=== PATIENT | female | born 1955 | race Caucasian/White ===

== ENCOUNTER → 2016-09-30 | Outpatient (CLI) | payer OTHER | END | disposition home or self-care (01) | LOC: YCFC.O 16:51 | PROVIDERS: ATTEND Nurse Practitioner Family | DX: E11.21 Type 2 diabetes mellitus with diabetic nephropathy (principal); I10 Essential (primary) hypertension; G40.909 Epilepsy, unspecified, not intractable, without status epilepticus; M54.17 Radiculopathy, lumbosacral region; Z13.220 Encounter for screening for lipoid disorders ==

== ENCOUNTER 2016-11-16 07:18 | Emergency (ER) | payer OTHER ==
[2016-11-16 07:39] VITALS: TEMP 98
[2016-11-16] MEDS ORDERED: HYDROmorphone HCL INJ 2 MG/ML VIAL IV ONE ×2 (07:42→08:49)
[2016-11-16] MEDS ORDERED: SODIUM CHLORIDE 0.9% 1000ML 1,000 ML IVS ONE (07:43)
[2016-11-16] MEDS ORDERED: ONDANSETRON ODT 8 MG TAB SL ONE (07:44)
--- NOTE | 2016-11-16 08:32 | RAD ---
EXAM DESCRIPTION: Obstructive series, 3 radiographs CLINICAL HISTORY: Right-sided abdomen and back pain FINDINGS/ IMPRESSION: Comparison 02/29/2016 Normal heart size. Tortuous atherosclerotic aorta with ectasia. Similar appearance on previous study. 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 This is seen on upper images of CT abdomen from 12/07/2015. There is also evidence of abdominal aortic aneurysm with faint vascular calcification on the plain radiograph. Previous CT shows aneurysmal dilation up to 4.4 cm. Imaging follow-up should be performed every 12 months at this size. Recommend vascular consultation No pulmonary edema, infiltrates or effusions Scattered large and small intestinal bowel gas. No evidence of pneumatosis or free intraperitoneal air. No mechanical bowel obstruction No organomegaly or obvious abdominal mass lesion. Atherosclerotic vascular calcifications and a common iliac vascular stent. Numerous phleboliths. Electronically signed by: Richard James MD 11/16/2016 8:31 AM CDT
[2016-11-16] MEDS ORDERED: PROMETHAZINE HCL INJ 25 MG/ML VIAL IM ONE (08:45)
[2016-11-16] MEDS ORDERED: METOPROLOL TARTRATE INJ 5 MG/5 ML VIAL IV ONE (08:48)
--- NOTE | 2016-11-16 09:10 | CT ---
EXAM DESCRIPTION: Abdoment/Pelvis w/o Contrast CLINICAL HISTORY: 61 years Female, right flank and abd pain, 18 hours, hx aneurysm COMPARISON: 07 December 2015 TECHNIQUE: Transaxial images were obtained without intravenous or oral contrast media. Sagittal and coronal reconstruction was performed.This exam was performed according to our departmental dose-optimization program, which includes automated exposure control, adjustment of the mA and/or kV according to patient size and/or use of iterative reconstruction technique. FINDINGS: The lung bases are clear. The liver and spleen are normal in appearance. No biliary ductal dilatation is observed. The gallbladder is normal in appearance. Diffuse aneurysmal dilatation of the abdominal aorta is observed. It measures 5.14cm in greatest diameter. Its not significantly changed in comparison is made to the previous exam. A right iliac artery stent is observed in place. Imaging of the kidneys reveals no evidence of hydronephrosis or mass. A mid pole 6.4 mm diameter left renal calculus is observed. A small simple cyst is observed in the lower pole the right kidney. Diverticulosis of the sigmoid colon is observed without evidence of diverticulitis. The patient is post hysterectomy. No inguinal region abnormality is seen. IMPRESSION: 1. Aneurysmal dilatation of the abdominal aorta is observed diffusely. It measures 5.14cm in diameter. Surgical consultation is recommended. 2. A midpole nonobstructing left renal calculus is observed. 3. Uncomplicated diverticulosis of the colon. 4. Hysterectomy Electronically signed by: David Burgos MD 11/16/2016 9:09 AM CDT
[2016-11-16] MEDS ORDERED: HYDROcodone 10MG/APAP 325MG 1 EA TAB PO ONE (10:37)
[2016-11-16] MEDS: cloNIDine HCL 0.1 MG TAB PO ONE ×2 (10:45→10:57)
--- NOTE | 2016-11-16 10:51 | ED.PDOC ---
History of Present Illness - General Chief Complaint: Back Pain or Injury Stated Complaint: back pain Time Seen by Provider: 11/16/16 07:20 Source: patient Exam Limitations: no limitations - History of Present Illness Initial Comments: the patient is a 61-year-old female presenting to the emergency room secondary to low back pain with some radiation around to her abdomen starting last night. The patient was out at the [place] watching a firework show. The patient is usually not very active but was out the better part of the day. She started having some spasm of her low back has progressively gotten worse over the night into this morning. Additionally the patient did forget to take her blood pressure medications this morning. The patient does have a known aortic aneurysm of the abdomen that is approximately 5 cm prior. No new neurological changes otherwise. No definite rebound or peritoneal signs. The patient has significant discomfort palpation to the paraspinal muscles adjacent to L3-L5. No visual changes on inspection of the back. No rash. Timing/Duration: 24 hours Severity: severe Improving Factors: nothing Worsening Factors: movement Associated Symptoms: denies symptoms Allergies/Adverse Reactions: Allergies Latex Allergy (Verified 11/16/16 07:38) OBTAINED FROM [facility] Penicillins Allergy (Verified 11/16/16 07:38) OBTAINED FROM [facility] Pregabalin [From Lyrica] Allergy (Verified 11/16/16 07:38) OBTAINED FROM [facility] CHART Home Medications: Ambulatory Orders Gabapentin [Neurontin] 1,200 mg PO TID 04/14/12 Isosorbide Mononitrate [Imdur] 60 mg PO DAILY 04/14/12 Nitroglycerin 0.4 mg Tab [Nitrostat] 0.4 mg SL PRN PRN 04/14/12 Phenytoin Sodium Cap (ER Disp) [Dilantin Cap (ER Disp)] 200 mg PO 1230 04/14/12 Phenytoin Sodium Cap (ER Disp) [Dilantin Cap (ER Disp)] 300 mg PO 0030 04/14/12 Promethazine Tab (ER Disp) [Phenergan Tab (ER Dispense)] 1 tab PO PRN PRN Amlodipine Besylate [Norvasc] 10 mg PO DAILY #0 tab 04/26/12 Aspirin 325 mg PO DAILY #0 tab 04/26/12 Atenolol 50 mg PO BID #0 tab 04/26/12 Lisinopril [Prinivil] 10 mg PO DAILY #0 tab 04/26/12 Clonidine HCl 0.4 mg PO TID 11/05/13 cloNAZepam [Klonopin] 1 mg PO TID PRN 11/06/13 Clopidogrel Bisulfate [Plavix] 75 mg PO QD 12/07/15 Metformin HCl 500 mg PO DAILY 12/07/15 Rosuvastatin Calcium [Crestor] 20 mg PO DAILY 12/07/15 Cetirizine HCl [ZyrTEC] 10 mg PO DAILY 01/05/16 Montelukast [Singulair] 10 mg PO DAILY 01/05/16 Lpkxhvmpqtnjy-Rcsq-Kcjqoaappb [Fioricet] 1 ea PO Q8H PRN #21 tab 11/16/16 Cyclobenzaprine HCl [Flexeril] 5 mg PO TID PRN #30 tab 11/16/16 Review of Systems - Review of Systems Review of Systems: 11/16/16 10:50 for new symptoms only Constitutional: States: no symptoms reported EENTM: States: no symptoms reported Respiratory: States: no symptoms reported Cardiology: States: no symptoms reported Gastrointestinal/Abdominal: States: abdominal pain Genitourinary: States: no symptoms reported Musculoskeletal: States: back pain Skin: States: no symptoms reported Neurological: States: see HPI Endocrine: States: no symptoms reported All other Systems: No Change from Baseline Past Medical History (General) - Patient Medical History Hx Seizures: Yes Hx Stroke: Yes - TIAs Hx Dementia: No Hx Asthma: Yes Hx of COPD: Yes Hx Cardiac Disorders: Yes Hx Congestive Heart Failure: No Hx Pacemaker: No Hx Hypertension: Yes Hx Thyroid Disease: No Hx Diabetes: Yes Hx Gastroesophageal Reflux: No Hx Renal Disease: Yes Hx Cancer: No Hx of HIV: No Hx Hepatitis C: Yes Hx MRSA: No Surgical History: Hysterectomy - Vaccination History Hx Tetanus, Diphtheria Vaccination: No Hx Influenza Vaccination: No Hx Pneumococcal Vaccination: Yes - Social History Hx Tobacco Use: Yes Hx Chewing Tobacco Use: No Hx Alcohol Use: No Hx Substance Use: No Hx Substance Use Treatment: No Hx Depression: Yes Hx Physical Abuse: No Hx Emotional Abuse: No Hx Suspected Abuse: No - Activities of Daily Living Hospice Agency (if applicable):: None - Female History Patient is a Female of Child Bearing Age (10 -59 yrs old): No Patient : No Family Medical History - Family History Mother Living Status: Still Living Hx Family Asthma: Yes Hx Family Congestive Heart Failure: No Hx Family Hypertension: Yes Hx Family Stroke: No Hx Family Diabetes: No Hx Family Cancer: No Physical Exam - Physical Exam General Appearance: Alert, No apparent distress, Obvious distress Eye Exam: bilateral normal Ears, Nose, Throat: hearing grossly normal, normal ENT inspection, normal pharynx Neck: non-tender, full range of motion, supple Respiratory: chest non-tender, lungs clear, normal breath sounds, no respiratory distress, no accessory muscle use Cardiovascular/Chest: normal peripheral pulses, no edema Peripheral Pulses: radial,right: 2+, radial,left: 2+, dorsalis pedis,right: 1+, dorsalis pedis,left: 1+, posterior tibialis,right: 1+, posterior tibialis,left: 1+ Gastrointestinal/Abdominal: non tender, soft Rectal Exam: deferred Back Exam: no vertebral tenderness, CVA tenderness (R) Extremity: normal range of motion, non-tender, no pedal edema, no calf tenderness, normal capillary refill, other - he patient does have some mild acral cyanosis which is long-standing 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, alert, normal mood/affect, oriented x 3 Skin Exam: normal color - except as above Comments: Vital Signs - 8 hr 11/16/16 11/16/16 11/16/16 07:25 09:03 09:20 Temperature 98.0 F Pulse Rate [ 75 74 pulse ox] Respiratory 20 20 Rate Blood Pressure 209/148 211/142 229/132 [Left Arm] O2 Sat by Pulse 99 96 Oximetry 11/16/16 09:50 Temperature Pulse Rate [ 73 pulse ox] Respiratory 20 Rate Blood Pressure 195/125 [Left Arm] O2 Sat by Pulse 97 Oximetry last manual blood pressure checked by me was 175/98 Progress - Progress Progress: 11/16/16 10:53 the patient is a 61-year-old female presenting to the emergency room secondary to right-sided low back pain starting last night. The patient is mildly dehydrated and did receive a liter of IV fluids. Additionally her blood pressures were uncontrolled this morning due to not having had her morning blood pressure medications as well as due to pain. The patient has received her morning blood pressure medications and some pain medications. Blood pressures have improved but are still significantly elevated. She does need follow her blood pressures twice daily while relaxed and record these for a follow-up appointment with her primary care doctor. The patient will be written for Fioricet and Flexeril for as needed use for the low back pain. Steroids are being avoided secondary to her diabetes. A heat pad and topical icy hot or Biofreeze may prove beneficial. Stretching may also prove beneficial. ER warnings are given for significant worsening. CT scan of the abdomen and pelvis showed no significant change of the abdominal aortic aneurysm. She does need to be set up with vascular surgery to follow along with this given its size. Additionally a vascular ultrasound may provide additional information on the aneurysm itself. - Results/Orders Results/Orders: 11/16/16 08:45 BLOOD CULTURE Stat Laboratory Results - last 24 hr 11/16/16 11/16/16 11/16/16 08:00 08:00 08:00 WBC 10.8 RBC 6.11 H Hgb 16.3 H Hct 49.0 H MCV 80.3 L MCH 26.6 L MCHC 33.2 RDW 15.3 H Plt Count 457 H MPV 8.0 Absolute Neuts (auto) 8.40 H Absolute Lymphs (auto) 1.60 Absolute Monos (auto) 0.60 Absolute Eos (auto) 0.10 Absolute Basos (auto) 0.20 H Neutrophils % 78.2 H Lymphocytes % 14.4 L Monocytes % 5.3 Eosinophils % 0.7 L Basophils % 1.4 PT 10.2 INR 0.900 PTT (SP) 35.3 D-Dimer, Quantitative 567 H* Sodium 130 L Potassium 4.5 Chloride 95 L Carbon Dioxide 23 Anion Gap 16.5 BUN 20 H Creatinine 1.27 BUN/Creatinine Ratio 15.7 Random Glucose 155 H Serum Osmolality 266.6 L Lactic Acid Calcium 10.0 Magnesium 2.2 Total Bilirubin 0.6 AST 14 ALT 11 Alkaline Phosphatase 190 H Creatine Kinase 45 CK-MB (CK-2) 1.4 CK-MB (CK-2) % Not Reportable Troponin I 0.03 B-Natriuretic Peptide 503.0 H* Serum Total Protein 9.0 H Albumin 4.5 Globulin 4.5 H Albumin/Globulin Ratio 1.0 L Amylase 84 Lipase 36 Urine Color Urine Appearance Urine pH Ur Specific [place] Urine Protein Urine Glucose (UA) Urine Ketones Urine Blood Urine Nitrite Urine Bilirubin Urine Urobilinogen Ur Leukocyte Esterase Urine RBC Urine WBC Ur Epithelial Cells Urine Bacteria 11/16/16 11/16/16 08:15 08:45 WBC RBC Hgb Hct MCV MCH MCHC RDW Plt Count MPV Absolute Neuts (auto) Absolute Lymphs (auto) Absolute Monos (auto) Absolute Eos (auto) Absolute Basos (auto) Neutrophils % Lymphocytes % Monocytes % Eosinophils % Basophils % PT INR PTT (SP) D-Dimer, Quantitative Sodium Potassium Chloride Carbon Dioxide Anion Gap BUN Creatinine BUN/Creatinine Ratio Random Glucose Serum Osmolality Lactic Acid 1.2 Calcium Magnesium Total Bilirubin AST ALT Alkaline Phosphatase Creatine Kinase CK-MB (CK-2) CK-MB (CK-2) % Troponin I B-Natriuretic Peptide Serum Total Protein Albumin Globulin Albumin/Globulin Ratio Amylase Lipase Urine Color Yellow Urine Appearance Clear Urine pH 7.5 Ur Specific [place] 1.020 Urine Protein >=300 H Urine Glucose (UA) Negative Urine Ketones Negative Urine Blood Small H Urine Nitrite Negative Urine Bilirubin Negative Urine Urobilinogen 0.2 Ur Leukocyte Esterase Negative Urine RBC 0 Urine WBC 0 Ur Epithelial Cells 3-[address] scan of abdomen and pelvis shows a stable aortic aneurysm of the abdomen at 5.1 cm. No evidence of leakage or significant size increase. No evidence of appendicitis. No evidence of diverticulitis. No evidence of any hematoma. No evidence of obstruction or perforation. Departure - Departure Clinical Impression: Hypertension, uncontrolled, Abdominal aortic aneurysm (AAA) >39 mm diameter Low back pain Qualifiers: Back pain laterality: right Sciatica presence: without sciatica Qualified Code( s): M54.5 - Low back pain Disposition: Discharge to Home or Self Care Condition: Fair Departure Forms: ED Discharge - Pt. Copy, Patient Portal Self Enrollment Diet: diabetic diet Activity: increase activity as tolerated Referrals: Nilam Angela FNP [Primary Care Provider] - 1-5 Days Prescriptions: Bosoqahaqbqns-Mpvh-Fwbmnmdmfb [Fioricet] 1 ea PO Q8H PRN #21 tab PRN Reason: Pain Cyclobenzaprine HCl [Flexeril] 5 mg PO TID PRN #30 tab PRN Reason: Muscle Spasms Home Medications: Ambulatory Orders Gabapentin [Neurontin] 1,200 mg PO TID 04/14/12 Isosorbide Mononitrate [Imdur] 60 mg PO DAILY 04/14/12 Nitroglycerin 0.4 mg Tab [Nitrostat] 0.4 mg SL PRN PRN 04/14/12 Phenytoin Sodium Cap (ER Disp) [Dilantin Cap (ER Disp)] 200 mg PO 1230 04/14/12 Phenytoin Sodium Cap (ER Disp) [Dilantin Cap (ER Disp)] 300 mg PO 0030 04/14/12 Promethazine Tab (ER Disp) [Phenergan Tab (ER Dispense)] 1 tab PO PRN PRN Amlodipine Besylate [Norvasc] 10 mg PO DAILY #0 tab 04/26/12 Aspirin 325 mg PO DAILY #0 tab 04/26/12 Atenolol 50 mg PO BID #0 tab 04/26/12 Lisinopril [Prinivil] 10 mg PO DAILY #0 tab 04/26/12 Clonidine HCl 0.4 mg PO TID 11/05/13 cloNAZepam [Klonopin] 1 mg PO TID PRN 11/06/13 Clopidogrel Bisulfate [Plavix] 75 mg PO QD 12/07/15 Metformin HCl 500 mg PO DAILY 12/07/15 Rosuvastatin Calcium [Crestor] 20 mg PO DAILY 12/07/15 Cetirizine HCl [ZyrTEC] 10 mg PO DAILY 01/05/16 Montelukast [Singulair] 10 mg PO DAILY 01/05/16 Cmxhmvqdtfpek-Ouvr-Nepzlcsthw [Fioricet] 1 ea PO Q8H PRN #21 tab 11/16/16 Cyclobenzaprine HCl [Flexeril] 5 mg PO TID PRN #30 tab 11/16/16 Additional Instructions: the patient is a 61-year-old female presenting to the emergency room secondary to right-sided low back pain starting last night. The patient is mildly dehydrated and did receive a liter of IV fluids. Additionally her blood pressures were uncontrolled this morning due to not having had her morning blood pressure medications as well as due to pain. The patient has received her morning blood pressure medications and some pain medications. Blood pressures have improved but are still significantly elevated. She does need follow her blood pressures twice daily while relaxed and record these for a follow-up appointment with her primary care doctor. The patient will be written for Fioricet and Flexeril for as needed use for the low back pain. Steroids are being avoided secondary to her diabetes. A heat pad and topical icy hot or Biofreeze may prove beneficial. Stretching may also prove beneficial. ER warnings are given for significant worsening. CT scan of the abdomen and pelvis showed no significant change of the abdominal aortic aneurysm. She does need to be set up with vascular surgery to follow along with this given its size. Additionally a vascular ultrasound may provide additional information on the aneurysm itself.
[2016-11-16 11:13] VITALS: BP 199/135; O2SAT 96
== END 2016-11-16 11:14 | disposition home or self-care (01) ==
LOC: ER 07:18
DX: M54.5 Low back pain (principal); I71.4 Abdominal aortic aneurysm, without rupture; I10 Essential (primary) hypertension; E86.0 Dehydration; Z91.040 Latex allergy status; Z88.0 Allergy status to penicillin; Z88.8 Allergy status to other drugs, medicaments and biological substances; Z79.899 Other long term (current) drug therapy; Z79.02 Long term (current) use of antithrombotics/antiplatelets; E11.9 Type 2 diabetes mellitus without complications; N28.9 Disorder of kidney and ureter, unspecified; B19.20 Unspecified viral hepatitis C without hepatic coma; Z86.73 Personal history of transient ischemic attack (TIA), and cerebral infarction without residual deficits; Z87.891 Personal history of nicotine dependence; Z82.49 Family history of ischemic heart disease and other diseases of the circulatory system
CPT/HCPCS: 36415; 74020; 74176; 80053; 81001; 82150; 82550; 82553; 83605; 83690; 83735; 83880; 84484; 85025; 85379; 85610; 85730; 87040; J1170; J2550; J7030

== ENCOUNTER 2016-12-19 00:12 | Emergency (ER) | payer OTHER ==
[2016-12-19] MEDS: HYDROmorphone HCL INJ 2 MG/ML VIAL IM ONE (00:57)
[2016-12-19] MEDS: diazePAM 5 MG TAB PO ONE (01:12)
--- NOTE | 2016-12-19 02:02 | ED.PDOC ---
History of Present Illness - General Chief Complaint: Problem Stated Complaint: flank pain, rt side Time Seen by Provider: 12/19/16 00:34 Source: patient Exam Limitations: no limitations - History of Present Illness Initial Comments: the patient is a 61-year-old female presenting to the emergency room secondary to low back pain. The patient reports that it is on the right and extending around her abdomento the front. It extends from the L3-L5 area. No incontinence. The patient was seen a month ago for similar low back pain primarily to the left. CT scan lab work were done at that timeshowing no new pathology. She does have a long-standing known aortic aneurysm and does have some chronic renal issues. The patient reports that the muscle relaxersand pain medications used at the time beffore that did help with that episode but the start of this episode yesterday or the day before those medications have not been close to adequate. The patient is very aggressive and foul mouthed. I do believe her pain is genuine. It does appear to be musculoskeletal in nature. She does seem to be having muscle spasms. The area to the right of L3-L5 is tender to palpation. Previously we have avoided prednisone secondary to her hypertension and reported diabetes. She has not yet taken her evening medications upon arrival here. Her blood pressure is elevated. The patient is frustrated that she has been unable to get adequate pain control from her primary care doctor. She has also apparently had difficulty getting around to see the doctors for treatment. Timing/Duration: 24 hours Severity: severe Improving Factors: nothing Worsening Factors: movement Associated Symptoms: denies symptoms Allergies/Adverse Reactions: Allergies Latex Allergy (Verified 11/16/16 07:38) OBTAINED FROM MAGIC CHART Penicillins Allergy (Verified 11/16/16 07:38) OBTAINED FROM MAGIC CHART Pregabalin [From Lyrica] Allergy (Verified 11/16/16 07:38) OBTAINED FROM [facility] CHART Home Medications: Ambulatory Orders Gabapentin [Neurontin] 1,200 mg PO TID 04/14/12 Isosorbide Mononitrate [Imdur] 60 mg PO DAILY 04/14/12 Nitroglycerin 0.4 mg Tab [Nitrostat] 0.4 mg SL PRN PRN 04/14/12 Phenytoin Sodium Cap (ER Disp) [Dilantin Cap (ER Disp)] 200 mg PO 1230 04/14/12 Phenytoin Sodium Cap (ER Disp) [Dilantin Cap (ER Disp)] 300 mg PO 0030 04/14/12 Promethazine Tab (ER Disp) [Phenergan Tab (ER Dispense)] 1 tab PO PRN PRN Amlodipine Besylate [Norvasc] 10 mg PO DAILY #0 tab 04/26/12 Aspirin 325 mg PO DAILY #0 tab 04/26/12 Atenolol 50 mg PO BID #0 tab 04/26/12 Lisinopril [Prinivil] 10 mg PO DAILY #0 tab 04/26/12 Clonidine HCl 0.4 mg PO TID 11/05/13 cloNAZepam [Klonopin] 1 mg PO TID PRN 11/06/13 Clopidogrel Bisulfate [Plavix] 75 mg PO QD 12/07/15 Metformin HCl 500 mg PO DAILY 12/07/15 Rosuvastatin Calcium [Crestor] 20 mg PO DAILY 12/07/15 Cetirizine HCl [ZyrTEC] 10 mg PO DAILY 01/05/16 Montelukast [Singulair] 10 mg PO DAILY 01/05/16 Lofifhpjiuifg-Pevb-Kahdrkitzh [Fioricet] 1 ea PO Q8H PRN #21 tab 11/16/16 Cyclobenzaprine HCl [Flexeril] 5 mg PO TID PRN #30 tab 11/16/16 Baclofen [Lioresal] 10 mg PO Q8HR PRN #30 tab 12/19/16 predniSONE [Prednisone] 20 mg PO DAILY #7 tab 12/19/16 Review of Systems - Review of Systems Constitutional: States: no symptoms reported EENTM: States: no symptoms reported Respiratory: States: no symptoms reported Cardiology: States: no symptoms reported Gastrointestinal/Abdominal: States: no symptoms reported Genitourinary: States: no symptoms reported Musculoskeletal: States: see HPI, back pain Skin: States: no symptoms reported Neurological: States: anxiety, other - radicular pain from sciatica Endocrine: States: no symptoms reported All other Systems: No Change from Baseline Past Medical History (General) - Patient Medical History Hx Seizures: Yes Hx Stroke: Yes - TIAs Hx Dementia: No Hx Asthma: Yes Hx of COPD: Yes Hx Cardiac Disorders: Yes Hx Congestive Heart Failure: No Hx Pacemaker: No Hx Hypertension: Yes Hx Thyroid Disease: No Hx Diabetes: Yes Hx Gastroesophageal Reflux: No Hx Renal Disease: Yes Hx Cancer: No Hx of HIV: No Hx Hepatitis C: Yes Hx MRSA: No - Vaccination History Hx Tetanus, Diphtheria Vaccination: No Hx Influenza Vaccination: No Hx Pneumococcal Vaccination: Yes Immunizations Up to Date: No - Social History Hx Tobacco Use: Yes Hx Chewing Tobacco Use: No Hx Alcohol Use: No Hx Substance Use: No Hx Substance Use Treatment: No Hx Depression: Yes Hx Physical Abuse: No Hx Emotional Abuse: No Hx Suspected Abuse: No - Female History Patient is a Female of Child Bearing Age (10 -59 yrs old): No Patient : No Family Medical History - Family History Mother Living Status: Still Living Hx Family Asthma: Yes Hx Family Congestive Heart Failure: No Hx Family Hypertension: Yes Hx Family Stroke: No Hx Family Diabetes: No Hx Family Cancer: No Physical Exam - Physical Exam General Appearance: Alert, Obvious distress Eye Exam: bilateral normal Ears, Nose, Throat: hearing grossly normal, normal ENT inspection, normal pharynx Neck: full range of motion, supple Respiratory: lungs clear, normal breath sounds, no respiratory distress, no accessory muscle use Cardiovascular/Chest: normal peripheral pulses, no edema Peripheral Pulses: radial,right: 2+, radial,left: 2+, dorsalis pedis,right: 2+, dorsalis pedis,left: 2+ Gastrointestinal/Abdominal: non tender, soft Rectal Exam: deferred Back Exam: other - ight-sided low back pain as per history of present illness. No visible deformity. There is palpable muscle spasm. Extremity: non-tender, no pedal edema, no calf tenderness Neurologic: loans consultant II-XII nml as tested, alert, oriented x 3 Skin Exam: normal color Comments: Vital Signs - 24 hr 12/19/16 00:34 Pulse Rate [rt] 83 Respiratory 18 Rate Blood Pressure 213/150 [Left Arm] Progress - Progress Progress: 12/19/16 02:04 the patient is a 61-year-old female presenting to the emergency room secondary to low back pain that appears to be musculoskeletal in nature. There may be some radicular component secondary to DJD of the lumbar spine. She is already taking medications for radicular pain. The patient will be written for another prescription for muscle relaxers. Previously we have been hesitant to use prednisone on this patient secondary to her hypertension and blood sugar issues. However if she is to get some relief I do believe that she is going to have to undergo a course of this. Additionally she will be written forTylenol 3 to try and replace tramadol see if this helps more. She may need more aggressive pain management with her primary care doctor. She may yet need more interventional pain management or neurology to get good control. Topical heat may help some. Stretches may also help some. ER warnings were given. - Results/Orders Results/Orders: Laboratory Tests 12/19/16 00:40 Urine Color Yellow Urine Appearance Clear Urine pH 7.5 Ur Specific [place] 1.015 Urine Protein 30 Urine Glucose (UA) Negative Urine Ketones Negative Urine Blood Trace-intact H Urine Nitrite Negative Urine Bilirubin Negative Urine Urobilinogen 0.2 Ur Leukocyte Esterase Negative Urine RBC 0-1 Urine WBC 0-1 Ur Epithelial Cells 3-5 Urine Bacteria Rare Departure - Departure Clinical Impression: Low back pain Qualifiers: Chronicity: chronic Back pain laterality: right Sciatica presence: without sciatica Qualified Code(s): M54.5 - Low back pain Disposition: Discharge to Home or Self Care Condition: Fair Departure Forms: ED Discharge - Pt. Copy, Patient Portal Self Enrollment Diet: diabetic diet Activity: increase activity as tolerated Referrals: Nilam Angela FNP [Primary Care Provider] - 1-5 Days Prescriptions: Baclofen [Lioresal] 10 mg PO Q8HR PRN #30 tab PRN Reason: Muscle Spasms predniSONE [Prednisone] 20 mg PO DAILY #7 tab Home Medications: Ambulatory Orders Gabapentin [Neurontin] 1,200 mg PO TID 04/14/12 Isosorbide Mononitrate [Imdur] 60 mg PO DAILY 04/14/12 Nitroglycerin 0.4 mg Tab [Nitrostat] 0.4 mg SL PRN PRN 04/14/12 Phenytoin Sodium Cap (ER Disp) [Dilantin Cap (ER Disp)] 200 mg PO 1230 04/14/12 Phenytoin Sodium Cap (ER Disp) [Dilantin Cap (ER Disp)] 300 mg PO 0030 04/14/12 Promethazine Tab (ER Disp) [Phenergan Tab (ER Dispense)] 1 tab PO PRN PRN Amlodipine Besylate [Norvasc] 10 mg PO DAILY #0 tab 04/26/12 Aspirin 325 mg PO DAILY #0 tab 04/26/12 Atenolol 50 mg PO BID #0 tab 04/26/12 Lisinopril [Prinivil] 10 mg PO DAILY #0 tab 04/26/12 Clonidine HCl 0.4 mg PO TID 11/05/13 cloNAZepam [Klonopin] 1 mg PO TID PRN 11/06/13 Clopidogrel Bisulfate [Plavix] 75 mg PO QD 12/07/15 Metformin HCl 500 mg PO DAILY 12/07/15 Rosuvastatin Calcium [Crestor] 20 mg PO DAILY 12/07/15 Cetirizine HCl [ZyrTEC] 10 mg PO DAILY 01/05/16 Montelukast [Singulair] 10 mg PO DAILY 01/05/16 Qplnfinlybrel-Hflr-Ecalbjqphh [Fioricet] 1 ea PO Q8H PRN #21 tab 11/16/16 Cyclobenzaprine HCl [Flexeril] 5 mg PO TID PRN #30 tab 11/16/16 Baclofen [Lioresal] 10 mg PO Q8HR PRN #30 tab 12/19/16 predniSONE [Prednisone] 20 mg PO DAILY #7 tab 12/19/16 Additional Instructions: the patient is a 61-year-old female presenting to the emergency room secondary to low back pain that appears to be musculoskeletal in nature. There may be some radicular component secondary to DJD of the lumbar spine. She is already taking medications for radicular pain. The patient will be written for another prescription for muscle relaxers. Previously we have been hesitant to use prednisone on this patient secondary to her hypertension and blood sugar issues. However if she is to get some relief I do believe that she is going to have to undergo a course of this. She may need more aggressive pain management with her primary care doctor. She may yet need more interventional pain management or neurology to get good control. Topical heat may help some. Stretches may also help some. ER warnings were given.
[2016-12-19] MEDS: HYDROcodone 10MG/APAP 325MG 1 EA TAB PO ONE (02:42)
[2016-12-19 02:53] VITALS: BP 190/112
== END 2016-12-19 03:02 | disposition home or self-care (01) ==
LOC: ER 00:12
DX: M54.5 Low back pain (principal); J44.9 Chronic obstructive pulmonary disease, unspecified; I10 Essential (primary) hypertension; E11.9 Type 2 diabetes mellitus without complications; B19.20 Unspecified viral hepatitis C without hepatic coma; F32.9 Major depressive disorder, single episode, unspecified; N28.9 Disorder of kidney and ureter, unspecified; Z86.73 Personal history of transient ischemic attack (TIA), and cerebral infarction without residual deficits; Z87.891 Personal history of nicotine dependence; Z79.899 Other long term (current) drug therapy; Z79.82 Long term (current) use of aspirin; Z88.0 Allergy status to penicillin; Z91.040 Latex allergy status; Z88.8 Allergy status to other drugs, medicaments and biological substances
CPT/HCPCS: 81001; J1170

== ENCOUNTER 2016-12-21 16:28 | Emergency (ER) | payer OTHER ==
[2016-12-21] MEDS ORDERED: LACTATED RINGERS 1,000 ML IVS ONE (16:59)
--- NOTE | 2016-12-21 17:01 | ED.PDOC ---
History of Present Illness - General Chief Complaint: General Stated Complaint: back pain Time Seen by Provider: 12/21/16 16:50 Source: patient, EMS notes reviewed Exam Limitations: no limitations - History of Present Illness Initial Comments: Sofia Hall 61 y/o female brought by ems after friend called up that she is having acute low back pain.On arrival at ER she was screaming asking for her friend and as soon as her friend came by she calmed down and stated sharp pain on her lower back with radiation to her groin right Timing/Duration: constant, getting worse, other - 3c days ago Severity: moderate Improving Factors: nothing Worsening Factors: nothing Associated Symptoms: denies symptoms Allergies/Adverse Reactions: Allergies Latex Allergy (Verified 11/16/16 07:38) OBTAINED FROM MAGIC CHART Penicillins Allergy (Verified 11/16/16 07:38) OBTAINED FROM MAGIC CHART Pregabalin [From Lyrica] Allergy (Verified 11/16/16 07:38) OBTAINED FROM MAGIC CHART Home Medications: Ambulatory Orders Gabapentin [Neurontin] 1,200 mg PO TID 04/14/12 Isosorbide Mononitrate [Imdur] 60 mg PO DAILY 04/14/12 Nitroglycerin 0.4 mg Tab [Nitrostat] 0.4 mg SL PRN PRN 04/14/12 Phenytoin Sodium Cap (ER Disp) [Dilantin Cap (ER Disp)] 200 mg PO 1230 04/14/12 Phenytoin Sodium Cap (ER Disp) [Dilantin Cap (ER Disp)] 300 mg PO 0030 04/14/12 Promethazine Tab (ER Disp) [Phenergan Tab (ER Dispense)] 1 tab PO PRN PRN Amlodipine Besylate [Norvasc] 10 mg PO DAILY #0 tab 04/26/12 Aspirin 325 mg PO DAILY #0 tab 04/26/12 Atenolol 50 mg PO BID #0 tab 04/26/12 Lisinopril [Prinivil] 10 mg PO DAILY #0 tab 04/26/12 Clonidine HCl 0.4 mg PO TID 11/05/13 cloNAZepam [Klonopin] 1 mg PO TID PRN 11/06/13 Clopidogrel Bisulfate [Plavix] 75 mg PO QD 12/07/15 Metformin HCl 500 mg PO DAILY 12/07/15 Rosuvastatin Calcium [Crestor] 20 mg PO DAILY 12/07/15 Cetirizine HCl [ZyrTEC] 10 mg PO DAILY 01/05/16 Montelukast [Singulair] 10 mg PO DAILY 01/05/16 Kjvtgefgxwgbf-Ahep-Gzmyfnnhia [Fioricet] 1 ea PO Q8H PRN #21 tab 11/16/16 Cyclobenzaprine HCl [Flexeril] 5 mg PO TID PRN #30 tab 11/16/16 Baclofen [Lioresal] 10 mg PO Q8HR PRN #30 tab 12/19/16 predniSONE [Prednisone] 20 mg PO DAILY #7 tab 12/19/16 Review of Systems - Review of Systems Constitutional: States: no symptoms reported EENTM: States: no symptoms reported Respiratory: States: no symptoms reported Cardiology: States: no symptoms reported Gastrointestinal/Abdominal: States: no symptoms reported Genitourinary: States: no symptoms reported Musculoskeletal: States: back pain Neurological: States: numbness - neuropathy Endocrine: States: no symptoms reported Hematologic/Lymphatic: States: no symptoms reported Past Medical History (General) - Patient Medical History Hx Seizures: Yes Hx Stroke: Yes - TIAs Hx Dementia: No Hx Asthma: Yes Hx of COPD: Yes Hx Cardiac Disorders: Yes Hx Congestive Heart Failure: No Hx Pacemaker: No Hx Hypertension: Yes Hx Thyroid Disease: No Hx Diabetes: Yes Hx Gastroesophageal Reflux: No Hx Renal Disease: Yes Hx Cancer: No Hx of HIV: No Hx Hepatitis C: Yes Hx MRSA: No Hx Other PMH: Yes - peripheral artery disease Hx Other - free text: Has AAA 5.4 cm under surveillance by vascular surgeon and cardilogist Surgical History: other - bilateral iliac artery stent - Vaccination History Hx Tetanus, Diphtheria Vaccination: No Hx Influenza Vaccination: No Hx Pneumococcal Vaccination: Yes - Social History Hx Tobacco Use: Yes Hx Chewing Tobacco Use: No Hx Alcohol Use: No Hx Substance Use: No Hx Substance Use Treatment: No Hx Depression: Yes Hx Physical Abuse: No Hx Emotional Abuse: No Hx Suspected Abuse: No - Female History Patient : No Family Medical History - Family History Mother Living Status: Still Living Hx Family Asthma: Yes Hx Family Congestive Heart Failure: No Hx Family Hypertension: Yes Hx Family Stroke: No Hx Family Diabetes: No Hx Family Cancer: No Physical Exam - Physical Exam General Appearance: Anxious, No apparent distress Eye Exam: bilateral normal Ears, Nose, Throat: hearing grossly normal, normal ENT inspection, normal pharynx, other - edentulous Neck: non-tender, supple Respiratory: chest non-tender, lungs clear, normal breath sounds Cardiovascular/Chest: regular rate, rhythm, no gallop, no murmur Peripheral Pulses: radial,right: 1+, radial,left: 1+, dorsalis pedis,right: 1+, dorsalis pedis,left: 1+ Gastrointestinal/Abdominal: non tender, soft, no organomegaly Back Exam: normal inspection, no CVA tenderness, no vertebral tenderness Extremity: normal range of motion, non-tender, no calf tenderness Neurologic: alert, oriented x 3, sensory deficit - decrease sensation forefoot- has neuropathy Skin Exam: warm/dry Lymphatic: no adenopathy Progress - Progress Progress: 12/21/16 21:02 Laboratory Tests 12/21/16 12/21/16 12/21/16 17:55 17:55 17:55 WBC 12.8 H RBC 6.20 H Hgb 16.3 H Hct 49.3 H MCV 79.6 L MCH 26.2 L MCHC 33.0 RDW 15.6 H Plt Count 527 H MPV 8.7 Absolute Neuts (auto) 9.70 H Absolute Lymphs (auto) 1.70 Absolute Monos (auto) 1.40 H Absolute Eos (auto) 0.00 Absolute Basos (auto) 0.10 Neutrophils % 75.3 Lymphocytes % 13.3 L Monocytes % 10.5 H Eosinophils % 0.0 L Basophils % 0.9 D-Dimer, Quantitative 952 H* Sodium 136 Potassium 3.9 Chloride 100 L Carbon Dioxide 21 Anion Gap 18.9 H BUN 26 H Creatinine 1.52 H BUN/Creatinine Ratio 17.1 Random Glucose 167 H Serum Osmolality 280.5 Calcium 10.6 H Total Bilirubin 0.4 AST 21 ALT 14 Alkaline Phosphatase 192 H Creatine Kinase 61 CK-MB (CK-2) 3.0 CK-MB (CK-2) % Not Reportable Troponin I 0.04 Serum Total Protein 9.1 H Albumin 4.5 Globulin 4.6 H Albumin/Globulin Ratio 1.0 L Ethyl Alcohol 12/21/16 17:55 WBC RBC Hgb Hct MCV MCH MCHC RDW Plt Count MPV Absolute Neuts (auto) Absolute Lymphs (auto) Absolute Monos (auto) Absolute Eos (auto) Absolute Basos (auto) Neutrophils % Lymphocytes % Monocytes % Eosinophils % Basophils % D-Dimer, Quantitative Sodium Potassium Chloride Carbon Dioxide Anion Gap BUN Creatinine BUN/Creatinine Ratio Random Glucose Serum Osmolality Calcium Total Bilirubin AST ALT Alkaline Phosphatase Creatine Kinase CK-MB (CK-2) CK-MB (CK-2) % Troponin I Serum Total Protein Albumin Globulin Albumin/Globulin Ratio Ethyl Alcohol < 5.40 - Results/Orders Results/Orders: Patient presently talking to friend mentioned she has appointment with primary md in am;Has also elevated d dimer but denies any chest pain or calf tenderness ,mostly pain on her lower back but she stated that she feels comfortable with both legs crossed. - EKG/XRAY/CT EKG: Sinus, Tachy, nonspecific ST T wave Chg Comments: HR 103 occ.[email or web address] XRAY: chest - no acute abnormality Departure - Departure Clinical Impression: Low back pain of over 3 months duration, Abdominal aortic aneurysm (AAA) >39 mm diameter Time of Disposition: 21:10 Disposition: Discharge to Home or Self Care Condition: Fair Referrals: Nilam Angela FNP [Primary Care Provider] - 1-2 Weeks Home Medications: Ambulatory Orders Gabapentin [Neurontin] 1,200 mg PO TID 04/14/12 Isosorbide Mononitrate [Imdur] 60 mg PO DAILY 04/14/12 Nitroglycerin 0.4 mg Tab [Nitrostat] 0.4 mg SL PRN PRN 04/14/12 Phenytoin Sodium Cap (ER Disp) [Dilantin Cap (ER Disp)] 200 mg PO 1230 04/14/12 Phenytoin Sodium Cap (ER Disp) [Dilantin Cap (ER Disp)] 300 mg PO 0030 04/14/12 Promethazine Tab (ER Disp) [Phenergan Tab (ER Dispense)] 1 tab PO PRN PRN Amlodipine Besylate [Norvasc] 10 mg PO DAILY #0 tab 04/26/12 Aspirin 325 mg PO DAILY #0 tab 04/26/12 Atenolol 50 mg PO BID #0 tab 04/26/12 Lisinopril [Prinivil] 10 mg PO DAILY #0 tab 04/26/12 Clonidine HCl 0.4 mg PO TID 11/05/13 cloNAZepam [Klonopin] 1 mg PO TID PRN 11/06/13 Clopidogrel Bisulfate [Plavix] 75 mg PO QD 12/07/15 Metformin HCl 500 mg PO DAILY 12/07/15 Rosuvastatin Calcium [Crestor] 20 mg PO DAILY 12/07/15 Cetirizine HCl [ZyrTEC] 10 mg PO DAILY 01/05/16 Montelukast [Singulair] 10 mg PO DAILY 01/05/16 Fsymihvoglteg-Gppc-Oprnqhfeic [Fioricet] 1 ea PO Q8H PRN #21 tab 11/16/16 Cyclobenzaprine HCl [Flexeril] 5 mg PO TID PRN #30 tab 11/16/16 Baclofen [Lioresal] 10 mg PO Q8HR PRN #30 tab 12/19/16 predniSONE [Prednisone] 20 mg PO DAILY #7 tab 12/19/16 Additional Instructions: Keep appointment with primary md in am 12/22/2016 RETURN to emergency room as needed
--- NOTE | 2016-12-21 17:18 | RAD ---
EXAM DESCRIPTION: Chest,1 View CLINICAL HISTORY: 61 years Female pain COMPARISON: None. FINDINGS: The cardiomediastinal silhouette appears unremarkable. No consolidating infiltrates or pleural effusions. No pneumothorax. IMPRESSION: No acute abnormality is identified. Electronically signed by: Bonnie Purvis 12/21/2016 5:17 PM CDT
--- NOTE | 2016-12-21 19:13 | CT ---
EXAM DESCRIPTION: Abdomen/Pelvis w/o Contrast CLINICAL HISTORY: 61 years Female pain/history of AAA COMPARISON: 11/16/2016 TECHNIQUE: Contiguous axial images obtained through the abdomen and pelvis without IV contrast. Reformatted images obtained. This exam was performed according to our department optimization program which includes automated exposure control, adjustment of the mA and/or kv according to patient size and/or use of iterative reconstruction technique. FINDINGS: The lung bases are clear. The liver appears unremarkable. The spleen and pancreas appear unremarkable. There is a left adrenal mass which is low attenuation and measures 2.9 cm. This appears unchanged and is most consistent with an adenoma. Right adrenal gland is mildly thickened. There is a nonobstructing renal calculus on the left which is unchanged. The gallbladder is visualized. There is aneurysmal dilatation of the distal thoracic aorta which measures 5 cm. At the level of the hiatus, the aorta measures 4.6 cm. There is diffuse aneurysmal dilatation of the abdominal aorta with several areas of saccular dilatation and outpouching. The maximum dimension perpendicular to the long axis of the aorta is 5 cm. This appears unchanged as compared to the prior examination. Surgical consultation is recommended and follow-up examination every six months. There is aneurysmal dilatation of the proximal iliac vessels bilaterally also unchanged. Left common iliac artery measures 3 cm and the right 2.8 cm. There is some adjacent stranding along the distal aorta without evidence to suggest rupture. This is also unchanged. Stent is present in the right common iliac artery No bowel obstruction. There is moderate fecal material in the colon. Diverticulosis without evidence of diverticulitis. No free pelvic fluid. IMPRESSION: Aneurysmal dilatation of the distal thoracic aorta and the abdominal aorta as well as the proximal iliac arteries as described above. Recommend follow-up imaging every six months and surgical consultation No evidence of rupture and no evidence of interval change Nonobstructing left renal calculus Diverticulosis Electronically signed by: Bonnie Purvis 12/21/2016 7:11 PM CDT
[2016-12-21] MEDS ORDERED: HYDROCOD/APAP 10/325 (ER DISP) # 3 tablets PO ONE (21:11)
[2016-12-21 21:43] VITALS: BP 188/85; TEMP 98.9; O2SAT 94
== END 2016-12-21 21:35 | disposition home or self-care (01) ==
LOC: ER 16:28
DX: M54.5 Low back pain (principal); I71.4 Abdominal aortic aneurysm, without rupture; Z86.73 Personal history of transient ischemic attack (TIA), and cerebral infarction without residual deficits; J44.9 Chronic obstructive pulmonary disease, unspecified; I10 Essential (primary) hypertension; E11.9 Type 2 diabetes mellitus without complications; B19.20 Unspecified viral hepatitis C without hepatic coma; I73.9 Peripheral vascular disease, unspecified; N28.9 Disorder of kidney and ureter, unspecified; Z87.891 Personal history of nicotine dependence; Z79.82 Long term (current) use of aspirin; Z79.899 Other long term (current) drug therapy
CPT/HCPCS: 36415; 71010; 74176; 80053; 80320; 82550; 82553; 84484; 85025; 85379; 93005; J7120

== ENCOUNTER → 2017-01-18 | Outpatient (CLI) | payer OTHER | LOC: YCFC.O 09:31 | PROVIDERS: ATTEND Nurse Practitioner Family | DX: E21.3 Hyperparathyroidism, unspecified (principal); E55.9 Vitamin D deficiency, unspecified; E53.8 Deficiency of other specified B group vitamins; G40.909 Epilepsy, unspecified, not intractable, without status epilepticus ==

== ENCOUNTER → 2017-02-09 | Outpatient (CLI) | payer OTHER ==
--- NOTE | 2017-02-10 10:17 | NM ---
EXAM DESCRIPTION: Parathyroid Scan CLINICAL HISTORY: 61 years, Female, OTHER HYPERPARATHYROIDISM COMPARISON: Patient apparently had an ultrasound evaluation on January 18. However those films and report from that study are not available for reference FINDINGS: Patient injected with 26.8 mCi technetium 99m sestamibi. Early and delayed images are obtained per protocol. Initial early images obtained over the lower face and neck region there is normal labeling of the salivary and thyroid glands. On delayed images much of the thyroid activity has been washed out. No parathyroid adenoma is visualized. Normal residual salivary gland activity remains on delayed images IMPRESSION: No findings suspicious for parathyroid adenoma Electronically signed by: Troy Dove MD 02/10/2017 10:16 AM CDT
== END | disposition home or self-care (01) ==
LOC: NM 13:51
PROVIDERS: ATTEND Otolaryngology
DX: E21.2 Other hyperparathyroidism (principal)

== ENCOUNTER → 2017-04-13 | Outpatient (CLI) | payer OTHER | END | disposition home or self-care (01) | LOC: YCFC.O 15:06 | PROVIDERS: ATTEND Nurse Practitioner Family | DX: M79.669 Pain in unspecified lower leg (principal); I10 Essential (primary) hypertension ==

== ENCOUNTER 2017-07-17 01:15 | Emergency (ER) | payer OTHER ==
[2017-07-17 01:36] VITALS: TEMP 99.1; O2SAT 99
--- NOTE | 2017-07-17 01:39 | ED.PDOC ---
History of Present Illness - General Chief Complaint: Back Pain or Injury Stated Complaint: chronic back pain Time Seen by Provider: 07/17/17 01:23 Source: patient Exam Limitations: no limitations - History of Present Illness Initial Comments: Patient presents with acute on chronic back pain. The pain is located in the bilateral thoracic regions with radiation to the groin on the left side. She states that it is similar to pain she has had before. It is sharp and constant. Worse with movement and better with rest. No other complaitns. She is using lidocaine patches right now. She says that 30 Lortabs would last her 6 months but also says that she has a "high tolerance". No new complaints. Timing/Duration: days Quality/Severity: moderate Back Pain Location: T-spine Back Pain Radiation: other - left groin Method of Injury/Prior Injury: unknown Improving Factors: rest Worsening Factors: movement Associated Symptoms: denies symptoms Allergies/Adverse Reactions: Allergies Latex Allergy (Verified 11/16/16 07:38) OBTAINED FROM MAGIC CHART Penicillins Allergy (Verified 07/17/17 01:36) OBTAINED FROM MAGIC CHART Pregabalin [From Lyrica] Allergy (Verified 07/17/17 01:36) OBTAINED FROM MAGIC CHART Home Medications: Ambulatory Orders Gabapentin [Neurontin] 1,200 mg PO TID 04/14/12 Isosorbide Mononitrate [Imdur] 60 mg PO DAILY 04/14/12 Nitroglycerin 0.4 mg Tab [Nitrostat] 0.4 mg SL PRN PRN 04/14/12 Phenytoin Sodium Cap (ER Disp) [Dilantin Cap (ER Disp)] 200 mg PO 1230 04/14/12 Phenytoin Sodium Cap (ER Disp) [Dilantin Cap (ER Disp)] 300 mg PO 0030 04/14/12 Promethazine Tab (ER Disp) [Phenergan Tab (ER Dispense)] 1 tab PO PRN PRN Amlodipine Besylate [Norvasc] 10 mg PO DAILY #0 tab 04/26/12 Aspirin 325 mg PO DAILY #0 tab 04/26/12 Atenolol 50 mg PO BID #0 tab 04/26/12 Lisinopril [Prinivil] 10 mg PO DAILY #0 tab 04/26/12 Clonidine HCl 0.4 mg PO TID 11/05/13 cloNAZepam [Klonopin] 1 mg PO TID PRN 11/06/13 Clopidogrel Bisulfate [Plavix] 75 mg PO QD 12/07/15 Metformin HCl 500 mg PO DAILY 12/07/15 Rosuvastatin Calcium [Crestor] 20 mg PO DAILY 12/07/15 Cetirizine HCl [ZyrTEC] 10 mg PO DAILY 01/05/16 Montelukast [Singulair] 10 mg PO DAILY 01/05/16 Gjhfoxmexggnl-Uqte-Obvulqqzfq [Fioricet] 1 ea PO Q8H PRN #21 tab 11/16/16 Cyclobenzaprine HCl [Flexeril] 5 mg PO TID PRN #30 tab 11/16/16 Baclofen [Lioresal] 10 mg PO Q8HR PRN #30 tab 12/19/16 predniSONE [Prednisone] 20 mg PO DAILY #7 tab 12/19/16 Review of Systems - Review of Systems Constitutional: States: no symptoms reported EENTM: States: no symptoms reported Respiratory: States: no symptoms reported Cardiology: States: no symptoms reported Gastrointestinal/Abdominal: States: no symptoms reported Genitourinary: States: no symptoms reported Musculoskeletal: States: see HPI Skin: States: no symptoms reported Neurological: States: no symptoms reported Endocrine: States: no symptoms reported Hematologic/Lymphatic: States: no symptoms reported Past Medical History (General) - Patient Medical History Hx Seizures: Yes Hx Stroke: Yes - TIAs Hx Dementia: No Hx Asthma: Yes Hx of COPD: Yes Hx Cardiac Disorders: Yes Hx Congestive Heart Failure: No Hx Pacemaker: No Hx Hypertension: Yes Hx Thyroid Disease: No Hx Diabetes: Yes Hx Gastroesophageal Reflux: No Hx Renal Disease: Yes Hx Cancer: No Hx of HIV: No Hx Hepatitis C: Yes Hx MRSA: No Surgical History: noncontributory - Vaccination History Hx Tetanus, Diphtheria Vaccination: No Hx Influenza Vaccination: No Hx Pneumococcal Vaccination: Yes - Social History Hx Tobacco Use: Yes Hx Chewing Tobacco Use: No Hx Alcohol Use: No Hx Substance Use: No Hx Substance Use Treatment: No Hx Depression: Yes Hx Physical Abuse: No Hx Emotional Abuse: No Hx Suspected Abuse: No - Female History Patient : No Family Medical History - Family History Mother Living Status: Still Living Hx Family Asthma: Yes Hx Family Congestive Heart Failure: No Hx Family Hypertension: Yes Hx Family Stroke: No Hx Family Diabetes: No Hx Family Cancer: No Physical Exam - Physical Exam General Appearance: Alert Eyes, Ears, Nose, Throat Exam: normal ENT inspection Neck Exam: non-tender, full range of motion, normal alignment Cardiovascular/Respiratory: regular rate, rhythm, normal peripheral pulses Gastrointestinal/Abdominal: normal bowel sounds, non tender, soft Back Exam: other - TTP over lateral thoracic regions. No CVA tenderness. No spinous process tenderness. Neurologic: no motor/sensory deficits Skin Exam: normal color Progress - Progress Progress: 07/17/17 01:41 I spoke with her about doing a one time injection of morphine and phenergan and she agreed that it would work and that she would call her pcp tomorrow for follow up. She was notified that habitual use of the E.R. for narcotic pain medications is inappropriate. Departure - Departure Clinical Impression: Chronic back pain greater than 3 months duration Disposition: Discharge to Home or Self Care Condition: Good Departure Forms: ED Discharge - Pt. Copy, Patient Portal Self Enrollment Instructions: DI for Low Back Pain Diet: other - as instructed by your primary physician Activity: increase activity as tolerated Referrals: Nilam Angela, [employer] [Primary Care Provider] - 1-2 Weeks Home Medications: Ambulatory Orders Gabapentin [Neurontin] 1,200 mg PO TID 04/14/12 Isosorbide Mononitrate [Imdur] 60 mg PO DAILY 04/14/12 Nitroglycerin 0.4 mg Tab [Nitrostat] 0.4 mg SL PRN PRN 04/14/12 Phenytoin Sodium Cap (ER Disp) [Dilantin Cap (ER Disp)] 200 mg PO 1230 04/14/12 Phenytoin Sodium Cap (ER Disp) [Dilantin Cap (ER Disp)] 300 mg PO 0030 04/14/12 Promethazine Tab (ER Disp) [Phenergan Tab (ER Dispense)] 1 tab PO PRN PRN Amlodipine Besylate [Norvasc] 10 mg PO DAILY #0 tab 04/26/12 Aspirin 325 mg PO DAILY #0 tab 04/26/12 Atenolol 50 mg PO BID #0 tab 04/26/12 Lisinopril [Prinivil] 10 mg PO DAILY #0 tab 04/26/12 Clonidine HCl 0.4 mg PO TID 11/05/13 cloNAZepam [Klonopin] 1 mg PO TID PRN 11/06/13 Clopidogrel Bisulfate [Plavix] 75 mg PO QD 12/07/15 Metformin HCl 500 mg PO DAILY 12/07/15 Rosuvastatin Calcium [Crestor] 20 mg PO DAILY 12/07/15 Cetirizine HCl [ZyrTEC] 10 mg PO DAILY 01/05/16 Montelukast [Singulair] 10 mg PO DAILY 01/05/16 Eqzoqsixxnutr-Ggtq-Ivoqbzszoq [Fioricet] 1 ea PO Q8H PRN #21 tab 11/16/16 Cyclobenzaprine HCl [Flexeril] 5 mg PO TID PRN #30 tab 11/16/16 Baclofen [Lioresal] 10 mg PO Q8HR PRN #30 tab 12/19/16 predniSONE [Prednisone] 20 mg PO DAILY #7 tab 12/19/16
[2017-07-17] MEDS ORDERED: PROMETHAZINE HCL INJ 25 MG/ML VIAL IM ONE (01:41)
[2017-07-17] MEDS ORDERED: MORPHINE SULFATE INJ 10 MG/ML VIAL IV ONE (01:41)
[2017-07-17] MEDS ORDERED: MORPHINE SULFATE INJ 10 MG/ML VIAL IM ONE (01:50)
== END 2017-07-17 02:03 | disposition home or self-care (01) ==
LOC: ER 01:15
DX: G89.29 Other chronic pain (principal); M54.6 Pain in thoracic spine; J44.9 Chronic obstructive pulmonary disease, unspecified; I10 Essential (primary) hypertension; Z86.73 Personal history of transient ischemic attack (TIA), and cerebral infarction without residual deficits; Z86.19 Personal history of other infectious and parasitic diseases; Z79.899 Other long term (current) drug therapy; Z79.02 Long term (current) use of antithrombotics/antiplatelets; Z91.040 Latex allergy status
CPT/HCPCS: J2270; J2550

== ENCOUNTER → 2017-07-28 | Outpatient (CLI) | payer OTHER ==
--- NOTE | 2017-07-28 16:15 | RAD ---
LEFT HIP HISTORY: PAIN IN LEFT HIP M25.552 COMPARISON: None FINDINGS: Two views of hip joint demonstrate anatomic bony alignment without fracture nor dislocation nor inflammatory erosion. Joint space is maintained. Femoral head contour is maintained without collapse nor avascular necrosis. No soft tissue abnormality around hip joint. No bony injury in remainder of visualized hemipelvis. IMPRESSION: No bony injury in left hip Electronically signed by: Anton Forde MD 07/28/2017 4:14 PM CDT
--- NOTE | 2017-07-28 16:19 | RAD ---
EXAM DESCRIPTION: Lumbar spine CLINICAL HISTORY: Back pain COMPARISON: None TECHNIQUE: Three views of lumbar spine FINDINGS: Maintained lumbar lordosis. Vertebral heights are intact without compression fracture. No spondylolysis nor significant spondylolisthesis. Unremarkable bony alignment along facet joints, with hypertrophic changes from L3 through S1. Spinous processes appear intact. Intervertebral disc heights are maintained. Incidental note of a vascular stents in right common iliac region. IMPRESSION: No bony injury identified in lumbar spine. Facet hypertrophy and lower lumbar spine could contribute to neuroforaminal stenosis. Electronically signed by: Anton Forde MD 07/28/2017 4:18 PM CDT
== END ==
LOC: RAD 13:20
PROVIDERS: ATTEND Nurse Practitioner Family
DX: M25.552 Pain in left hip (principal); M54.5 Low back pain

== ENCOUNTER → 2017-09-21 | Outpatient (CLI) | payer OTHER ==
--- NOTE | 2017-09-21 16:37 | CT ---
EXAM DESCRIPTION: Abdomen w/o Contrast CLINICAL HISTORY: ABDOMINAL AORTIC ANEURYSM W/O RUPTURE COMPARISON: CT abdomen without contrast 12/21/2016.None. TECHNIQUE: Spiral-axial scans at 5.0 mm intervals through the abdomen. Sagittal and coronal 2.0 mm reconstructions. No IV or oral contrast. Total DLP: 928.38 mGy - m2. This exam was performed according to our departmental dose-optimization program which includes automated exposure control, adjustment of the mA and/or kV according to patient size and/or use of iterative reconstruction technique; to reduce radiation dose to as low as reasonably achievable (ALARA). FINDINGS: Aorta: At the level of the aortic hiatus, the dimensions of the diaphragm are 4.6 x 3.4 cm. At the level of the origin of the celiac axis, dimensions are 4.2 cm AP by 4.1 cm transverse. At the level of the SMA origin, dimensions are 4.6 cm AP and 4.8 cm transverse. Just above the renal artery ostia, dimensions are 4.6 cm AP and 3.6 cm transverse. At the level of the CLEO origin, dimensions are 4.1 x AP 3.9 cm transverse. Just above the bifurcation, dimensions are 4.0 x 3.2 cm. Density within the aorta indicates the true lumen is decreased in diameter to the outer wall of the aorta. No significant change in size of the aneurysm since the prior study. Again noted is a calcified stent in the right common iliac artery. Both common iliac arteries are also dilated proximally measuring 2 x 2.2 cm on the right and 2.7 cm on the left. No fluid collection or soft tissue mass abutting the aorta.. Lung bases and pleura: Scarring in the left lung base versus atelectasis which was not seen on the prior study. Coronary artery calcifications again noted. Upper Abdominal organs: Long axis of the right lobe of the liver is 20 cm. No focal hepatic lesions or ascites. Bilateral adrenal gland enlargement again noted with Hounsfield density less than -15 HU bilaterally. Spleen and stomach are unremarkable. Pancreas/Gallbladder/Ducts: Gallbladder visualized. Duct negative. Pancreas unremarkable. Kidneys: 5 mm radiodense stone in the upper collecting system of the left kidney is stable. Also atherosclerotic calcification on the left. 2 mm radiodense stone right kidney. No hydronephrosis. Mesentery: No stranding or fascial thickening. No free intraperitoneal air. Small Bowel: Minimal gas and fluid with no significant air-fluid levels. Terminal Ileum/Cecum: Not completely seen. Appendix is partially seen. No fatty stranding. Colon: Gas and fecal material not distended. Distal: Was not imaged. Scattered distal diverticula with no complications. Spine: Minimal endplate degenerative changes. Mild levoscoliosis. Air density in the bilateral SI joints. Abdominal Wall/Back Soft Tissues: Fatty diastases at the umbilicus but not containing bowel. IMPRESSION: 1. Diffuse aneurysm of the entire abdominal aorta as described. No significant change in diameter from the prior study. Consider follow-up scan in 12 month interval according to [facility] Best Practice guidelines for abdominal aortic aneurysm imaging follow-up. Also consider vascular surgical consult if not previously done. Please see below.* 2. Hepatomegaly is stable. Bilateral adrenal adenomas stable. No change in 5 mm radiodense stone in the left kidney. New scarring or atelectasis in the left lung base since the prior study. *AAA Size: Follow-up Recommendation (1): 2.6 - 2.9 cm Every 5 years (2) 3.0 - 3.4 cm Every 3 years 3.5 - 3.9 cm Every 12 months 4.0 - 4.4 cm Every 12 months, vasc consult rec 4.5 - 5.4 cm Every 6 months, vasc consult rec >=5.5 cm Referral to vascular surgeon recommended (1)Based upon the Society for Vascular Surgery Guidelines: J Vasc Surg. 2009 Feb;50(4 Suppl):S2-49 (2)For aortas of max roverto of 2.6-2.9 cm that meet criteria for AAA (>= 1.5 x proximal normal segment) Electronically signed by: Aime Giron MD 09/21/2017 4:36 PM CDT
== END ==
LOC: CT 11:00
PROVIDERS: ATTEND Nurse Practitioner Family
DX: I71.4 Abdominal aortic aneurysm, without rupture (principal)

== ENCOUNTER → 2017-11-29 | Outpatient (CLI) | payer OTHER | LOC: YCFC.O 10:34 | PROVIDERS: ATTEND Nurse Practitioner Family | DX: I10 Essential (primary) hypertension (principal); E13.42 Other specified diabetes mellitus with diabetic polyneuropathy; G40.909 Epilepsy, unspecified, not intractable, without status epilepticus; M25.50 Pain in unspecified joint; Z13.220 Encounter for screening for lipoid disorders ==

== ENCOUNTER → 2018-09-19 | Outpatient (CLI) | payer OTHER ==
--- NOTE | 2018-09-19 15:06 | RAD ---
EXAM DESCRIPTION: Chest,2 Views CLINICAL HISTORY: TOBACCO USE COMPARISON: Previous study December 21, 2016 TECHNIQUE: PA/lateral FINDINGS: There is no acute appearing cardiac or pulmonary abnormality. Heart size is large with normal pulmonary vascularity. No pleural effusion or pneumothorax. Lungs are clear with no consolidating infiltrate. Lateral view shows intact sternum and T-spine. IMPRESSION: Large heart without congestive failure. Electronically signed by: Ted Myrick MD 09/19/2018 3:03 PM CDT
--- NOTE | 2018-09-20 09:39 | US ---
EXAM DESCRIPTION: Soft Tissue,Extremity: ULTRASOUND. CLINICAL HISTORY: 63 years Female NODULES. Anterior right lower leg. Right forearm posterior lateral. Right elbow. Associated with trauma and skin ecchymosis. COMPARISON: None Available. TECHNIQUE: Transcutaneous scanning: Villar-scale and Doppler modes. Anterior right lower leg, right forearm posterior lateral, and right elbow. FINDINGS: Scanning of the anterior right lower leg. Mostly anechoic and partially hypoechoic mass in the subcutaneous adipose tissue, anterior to the anterior tibialis. This measures 1.2 x 1.6 x 0.6 cm. Vascularity abutting the periphery. Consistent with a partially liquefied hematoma. No dominant solid mass. No large calcifications. Scanning of the right posterior lateral forearm in the right elbow. Echogenic nodule with well-defined capsule measuring 1.1 x 1.9 x 0.5 cm in the subcutaneous adipose tissue, superficial to the muscle fascia. Partially hypoechoic capsule and central region of hypoechogenicity or fluid. Nonvascular. No simple cyst or large calcifications. No abnormal vascularity. Normal appearing soft tissue mass on the right elbow. Also in the subcutaneous adipose tissue superficial to the muscle fascia and bone. No Doppler signature. Minimal fluid. Dimensions are 10.4 x 7.6 x 4.1 mm. IMPRESSION: Mostly solid soft tissue masses with minimal fluid in the subcutaneous adipose tissue of the anterior right lower leg, posterior right forearm, and right elbow. Consistent with hematomas with partial liquefication. If these masses enlarges or becomes more painful, recommend follow-up ultrasound. Electronically signed by: Aime Giron MD 09/20/2018 9:36 AM CDT
--- NOTE | 2018-09-24 17:25 | MAM ---
EXAM DESCRIPTION: 3D Screening BILATERAL : Digital Mammography. CLINICAL HISTORY: 63 years Female SCREEN . No complaints, no personal or family history of breast cancer. Childbirth. Postmenopausal 30 years. HRT 5 or more years ago. Lifetime risk of developing breast cancer (Tyrer-Cuzick model)(%): 13.2. COMPARISON: 2-D digital screening bilateral study mammography 07/25/2012. No prior reports available. TECHNIQUE: Bilateral CC and MLO projection full-field images, digital tomosynthesis mammographic technique. Bilateral digital 2-D full-field MLO images. CAD not available for tomosynthesis or 2-D images. FINDINGS: The breast parenchymal density pattern is: Scattered areas of fibroglandular density. No skin thickening or nipple retraction. Bilateral solitary microcalcifications. Dense tissue is in the anterior third bilaterally. No new focal, stellate mass or density, focal asymmetry , and no suspicious microcalcifications bilaterally. Stable mammograms compared to prior study., But fibroglandular tissues less dense on the current study. Taking into account, differences in mammographic technique. IMPRESSION: Benign exam. BIRAD CATEGORY: 2 BENIGN FINDINGS. RECOMMENDATIONS: FOLLOW UP: Routine digital bilateral mammographic screening, one year interval from September 2018. Written communication explaining the IMPRESSION and follow-up, will be mailed to the patient and referring health care provider. The FINDINGS and the FOLLOW-UP plan were reviewed in person with the patient after the examination. According to the [employer] [place] [employer], yearly mammograms are recommended starting at age 40 and continuing as long as a woman is in good health. Any breast change noted on a breast self-exam should be reported promptly to the patient's healthcare provider. Breast MRI is recommended for women with an approximately 20-25% or greater lifetime risk of breast cancer, including women with a strong family history of breast or ovarian cancer and women who have been treated for Hodgkin's disease. A negative mammographic report should not delay tissue diagnosis in patients with significant clinical history or physical findings. Extremely dense breast tissue limits the sensitivity of digital mammography. Electronically signed by: Aime Giron MD 09/24/2018 5:23 PM CDT
== END ==
LOC: MAMMO 13:30
PROVIDERS: ATTEND Nurse Practitioner Family
DX: Z12.31 Encounter for screening mammogram for malignant neoplasm of breast (principal); Z13.220 Encounter for screening for lipoid disorders; Z11.59 Encounter for screening for other viral diseases; R22.31 Localized swelling, mass and lump, right upper limb; R22.41 Localized swelling, mass and lump, right lower limb; R58 Hemorrhage, not elsewhere classified; E03.9 Hypothyroidism, unspecified; I51.7 Cardiomegaly; I10 Essential (primary) hypertension; E13.42 Other specified diabetes mellitus with diabetic polyneuropathy; Z72.0 Tobacco use

== ENCOUNTER → 2018-09-25 | Outpatient (CLI) | payer OTHER ==
--- NOTE | 2018-09-26 11:04 | CT ---
Procedure: CT ABDOMEN WITHOUT IV CONTRAST Exam Date: 09/25/2018 Ordering Provider: Nilam Angela Clinical Indication: ANNUAL EVAL OF AAA Comparison: 09/21/2017 TECHNIQUE: 2.5mm images were taken through the abdomen without the administration of nonionic intravenous contrast material. Oral contrast was not administered. Coronal and sagittal reformatted images were generated. This exam was performed according to our departmental dose optimization program which includes use of automated exposure control, adjustment of the mA and/or kV according to patient size and/or use of iterative reconstruction technique. FINDINGS: Lower chest: Subsegmental atelectasis and/or scarring in the lingula. Abdomen: Liver and biliary system: Hepatomegaly. Hepatic steatosis. No calcified gallstones. Spleen: Unremarkable Pancreas: Unremarkable Adrenal glands: Stable bilateral lipid rich adrenal adenomas. Kidneys : Stable millimetric stones in both kidneys. No hydronephrosis in either kidney. Stable 12 mm cyst in the right kidney. Subcentimeter lesions in the left kidney are too small to characterize Lymph nodes: No lymphadenopathy Retroperitoneum, abdominal wall, peritoneal cavity: No ascites. No free air. Tiny Fat-containing umbilical hernia. Vessels: Diffuse calcified atherosclerotic plaque throughout the visualized aorta. Dilatation of the descending thoracic aorta measuring 4.1 x 4.1 cm. At the level of the hiatus the aorta measures 5.1 x 3.9 cm, previously measured 4.6 x 3.4 cm. At the level of the celiac trunk, the aorta measures 4.6 x 4.1 cm, previously measured 4.2 x 4.1 cm. At the level of the superior mesenteric artery the aorta measures 4.9 x 5.0 cm, previously measured 4.6 x 4.8 cm. The infrarenal abdominal aorta measures 4.6 x 4.6 cm, previously measured 4.5 x 4.3 cm. There is redemonstration of a stent within the right common iliac artery. Common iliac arteries remain dilated, right measuring up to 2.8 cm in greatest dimension, previously 2.2 cm and the left measuring up to 2.8 cm, previously 2.7 cm. No para-aortic hematoma. Bowel: There is diverticulosis of the visualized colon without evidence of diverticulitis. Large colonic stool burden. No obstruction of the visualized bowel. Large duodenal diverticulum. Bones: No destructive bony lesions. IMPRESSION: 1. Enlarging abdominal aortic aneurysm. Vascular consultation is recommended. 2. Additional chronic findings as above. Electronically signed by: Everett Weaver MD 09/26/2018 11:02 AM CDT
== END ==
LOC: LAB.O 14:49
PROVIDERS: ATTEND Nurse Practitioner Family
DX: I71.4 Abdominal aortic aneurysm, without rupture (principal); E13.42 Other specified diabetes mellitus with diabetic polyneuropathy; I10 Essential (primary) hypertension; E03.9 Hypothyroidism, unspecified; Z13.220 Encounter for screening for lipoid disorders; R58 Hemorrhage, not elsewhere classified; Z11.59 Encounter for screening for other viral diseases

== ENCOUNTER 2018-10-15 10:03 | Emergency (ER) | payer OTHER ==
[2018-10-15 10:19] VITALS: O2SAT 98
--- NOTE | 2018-10-15 10:21 | ED.PDOC ---
History of Present Illness - General Chief Complaint: Upper Extremity Injury Stated Complaint: right thumb injury Time Seen by Provider: 10/15/18 10:14 Source: patient Exam Limitations: no limitations - History of Present Illness Initial Comments: Pt fall two days ago and landed on R hand. Has pain in thumb with decreased ROM Pain - Upper Extremity: moderate: Hand, right Method of Injury: fell Improving Factors: immobilization Worsening Factors: movement Allergies/Adverse Reactions: Allergies Latex Allergy (Verified 11/16/16 07:38) OBTAINED FROM MAGIC CHART Penicillins Allergy (Verified 07/17/17 01:36) OBTAINED FROM MAGIC CHART Pregabalin [From Lyrica] Allergy (Verified 07/17/17 01:36) OBTAINED FROM MAGIC CHART Home Medications: Ambulatory Orders Gabapentin [Neurontin] 1,200 mg PO TID 04/14/12 Isosorbide Mononitrate [Imdur] 60 mg PO DAILY 04/14/12 Nitroglycerin 0.4 mg Tab [Nitrostat] 0.4 mg SL PRN PRN 04/14/12 Phenytoin Sodium Cap (ER Disp) [Dilantin Cap (ER Disp)] 200 mg PO 1230 04/14/12 Phenytoin Sodium Cap (ER Disp) [Dilantin Cap (ER Disp)] 300 mg PO 0030 04/14/12 Promethazine Tab (ER Disp) [Phenergan Tab (ER Dispense)] 1 tab PO PRN PRN 04/14/12 Amlodipine Besylate [Norvasc] 10 mg PO DAILY #0 tab 04/26/12 Aspirin 325 mg PO DAILY #0 tab 04/26/12 Atenolol 50 mg PO BID #0 tab 04/26/12 Lisinopril [Prinivil] 10 mg PO DAILY #0 tab 04/26/12 Clonidine HCl [Clonidine Hydrochloride] 0.4 mg PO TID 11/05/13 cloNAZepam [Klonopin] 1 mg PO TID PRN 11/06/13 Clopidogrel Bisulfate [Plavix] 75 mg PO QD 12/07/15 Metformin HCl [Metformin Hydrochloride] 500 mg PO DAILY 12/07/15 Rosuvastatin Calcium [Crestor] 20 mg PO DAILY 12/07/15 Cetirizine HCl [ZyrTEC] 10 mg PO DAILY 01/05/16 Montelukast [Singulair] 10 mg PO DAILY 01/05/16 Bnlhdjhtftuos-Qnum-Wfyothvhgo [Fioricet] 1 ea PO Q8H PRN #21 tab 11/16/16 Cyclobenzaprine HCl [Flexeril] 5 mg PO TID PRN #30 tab 11/16/16 Baclofen [Lioresal] 10 mg PO Q8HR PRN #30 tab 12/19/16 predniSONE [Prednisone] 20 mg PO DAILY #7 tab 12/19/16 Tramadol HCl 50 mg PO Q4HR PRN #15 tab 10/15/18 Review of Systems - Review of Systems Constitutional: States: no symptoms reported Musculoskeletal: States: joint pain - In R first MP joint. Minimal tenderness in anatomic snuffbox and first IP joint. Limited ROM, joint swelling - 1 + edema at 1st MP Skin: States: no symptoms reported Past Medical History (General) - Patient Medical History Hx Seizures: Yes Hx Stroke: Yes - TIAs Hx Dementia: No Hx Asthma: Yes Hx of COPD: Yes Hx Cardiac Disorders: Yes Hx Congestive Heart Failure: No Hx Pacemaker: No Hx Hypertension: Yes Hx Thyroid Disease: No Hx Diabetes: Yes Hx Gastroesophageal Reflux: No Hx Renal Disease: Yes Hx Cancer: No Hx of HIV: No Hx Hepatitis C: Yes Hx MRSA: No - Vaccination History Hx Tetanus, Diphtheria Vaccination: No Hx Influenza Vaccination: No Hx Pneumococcal Vaccination: Yes - Social History Hx Tobacco Use: Yes Hx Chewing Tobacco Use: No Hx Alcohol Use: No Hx Substance Use: No Hx Substance Use Treatment: No Hx Depression: Yes Hx Physical Abuse: No Hx Emotional Abuse: No Hx Suspected Abuse: No - Female History Patient : No Family Medical History - Family History Mother Living Status: Still Living Hx Family Asthma: Yes Hx Family Congestive Heart Failure: No Hx Family Hypertension: Yes Hx Family Stroke: No Hx Family Diabetes: No Hx Family Cancer: No Physical Exam - Physical Exam General Appearance: Alert, Anxious Elbow/Forearm Exam: normal inspection, non-tender Wrist Exam: normal inspection, non-tender Hand Exam: limited ROM, swelling - 1st MP Neuro/Tendon: normal sensation, normal tendon functions, responds to pain Mental Status: alert, oriented x 3 Skin Exam: normal color, warm/dry Departure - Departure Clinical Impression: Sprain of hand, thumb, right Qualifiers: Encounter type: initial encounter Sprain of finger site: metacarpophalangeal joint Qualified Code(s): S63.641A - Sprain of metacarpophalangeal joint of right thumb, initial encounter Disposition: Discharge to Home or Self Care Condition: Fair Departure Forms: ED Discharge - Pt. Copy, Patient Portal Self Enrollment Instructions: DI for Arm Pain Referrals: Nilam Angela, [employer] [Primary Care Provider] - 1-2 Weeks Prescriptions: Tramadol HCl 50 mg PO Q4HR PRN #15 tab PRN Reason: Moderate Pain Home Medications: Ambulatory Orders Gabapentin [Neurontin] 1,200 mg PO TID 04/14/12 Isosorbide Mononitrate [Imdur] 60 mg PO DAILY 04/14/12 Nitroglycerin 0.4 mg Tab [Nitrostat] 0.4 mg SL PRN PRN 04/14/12 Phenytoin Sodium Cap (ER Disp) [Dilantin Cap (ER Disp)] 200 mg PO 1230 04/14/12 Phenytoin Sodium Cap (ER Disp) [Dilantin Cap (ER Disp)] 300 mg PO 0030 04/14/12 Promethazine Tab (ER Disp) [Phenergan Tab (ER Dispense)] 1 tab PO PRN PRN 1205/26 Amlodipine Besylate [Norvasc] 10 mg PO DAILY #0 tab 04/26/12 Aspirin 325 mg PO DAILY #0 tab 04/26/12 Atenolol 50 mg PO BID #0 tab 04/26/12 Lisinopril [Prinivil] 10 mg PO DAILY #0 tab 04/26/12 Clonidine HCl [Clonidine Hydrochloride] 0.4 mg PO TID 11/05/13 cloNAZepam [Klonopin] 1 mg PO TID PRN 11/06/13 Clopidogrel Bisulfate [Plavix] 75 mg PO QD 12/07/15 Metformin HCl [Metformin Hydrochloride] 500 mg PO DAILY 12/07/15 Rosuvastatin Calcium [Crestor] 20 mg PO DAILY 12/07/15 Cetirizine HCl [ZyrTEC] 10 mg PO DAILY 01/05/16 Montelukast [Singulair] 10 mg PO DAILY 01/05/16 Gqenvfpdgonov-Xiuv-Bgeckdutkd [Fioricet] 1 ea PO Q8H PRN #21 tab 11/16/16 Cyclobenzaprine HCl [Flexeril] 5 mg PO TID PRN #30 tab 11/16/16 Baclofen [Lioresal] 10 mg PO Q8HR PRN #30 tab 12/19/16 predniSONE [Prednisone] 20 mg PO DAILY #7 tab 12/19/16 Tramadol HCl 50 mg PO Q4HR PRN #15 tab 10/15/18
--- NOTE | 2018-10-15 11:00 | RAD ---
EXAM DESCRIPTION: Hand,Right 3 Views CLINICAL HISTORY: fell with pain to 1st MP joint COMPARISON: None Available. TECHNIQUE: AP, LATERAL, AND OBLIQUE FINDINGS: Three-view right hand shows no fracture or dislocation. Bones appear mildly demineralized and mildly degenerative. There is no bone lesion. There are no significant arthritic changes. There is no radiopaque foreign body. IMPRESSION: 1. No acute injury right hand noted. Electronically signed by: Richard Dow MD 10/15/2018 10:58 AM CDT
[2018-10-15] MEDS ORDERED: KETOROLAC TROMETHAMINE INJ 60 MG/2 ML VIAL IM ONE (11:21)
[2018-10-15] MEDS ORDERED: PROMETHAZINE HCL INJ 25 MG/ML VIAL IM ONE (11:22)
[2018-10-15 11:40] VITALS: BP 168/103
[2018-10-15 11:43] VITALS: TEMP 98.9
== END 2018-10-15 11:42 | disposition home or self-care (01) ==
LOC: ER 10:03
DX: S63.641A Sprain of metacarpophalangeal joint of right thumb, initial encounter (principal); F32.9 Major depressive disorder, single episode, unspecified; E11.22 Type 2 diabetes mellitus with diabetic chronic kidney disease; N18.9 Chronic kidney disease, unspecified; I12.9 Hypertensive chronic kidney disease with stage 1 through stage 4 chronic kidney disease, or unspecified chronic kidney disease; R56.9 Unspecified convulsions; J44.9 Chronic obstructive pulmonary disease, unspecified; I51.9 Heart disease, unspecified; Z87.891 Personal history of nicotine dependence; Z86.73 Personal history of transient ischemic attack (TIA), and cerebral infarction without residual deficits; Z86.19 Personal history of other infectious and parasitic diseases; Z79.84 Long term (current) use of oral hypoglycemic drugs; Z79.82 Long term (current) use of aspirin; Z79.899 Other long term (current) drug therapy; Z91.040 Latex allergy status; Z88.8 Allergy status to other drugs, medicaments and biological substances; Z88.0 Allergy status to penicillin; W19.XXXA Unspecified fall, initial encounter; Y92.009 Unspecified place in unspecified non-institutional (private) residence as the place of occurrence of the external cause
CPT/HCPCS: 73130; J1885; J2550

== ENCOUNTER 2019-05-22 15:02 | Emergency (ER) | payer OTHER ==
--- NOTE | 2019-05-22 15:12 | ED.PDOC ---
History of Present Illness - General Time Seen by Provider: 05/22/19 15:05 Source: patient, RN notes reviewed, Vital Signs reviewed, RN/MD Exam Limitations: no limitations - History of Present Illness Initial Comments: Pt is a 63 yo female with PMH of COPD, HTN, DM who comes to ED from PCP office for evaluation. Pt reports 5 day h/o cough, congestion, body aches and dyspnea on exertion. Has used Mucinex and albuterol at home with some improvement. Denies fever, NVD, CP. Allergies/Adverse Reactions: Allergies Latex Allergy (Verified 05/22/19 15:24) OBTAINED FROM MAGIC CHART Penicillins Allergy (Verified 05/22/19 15:24) OBTAINED FROM MAGIC CHART Pregabalin [From Lyrica] Allergy (Verified 05/22/19 15:24) OBTAINED FROM MAGIC CHART Home Medications: Ambulatory Orders RX: Gabapentin [Neurontin] 1,200 mg PO TID 04/14/12 RX: Isosorbide Mononitrate [Imdur] 60 mg PO DAILY 04/14/12 RX: Nitroglycerin 0.4 mg Tab [Nitrostat] 0.4 mg SL PRN PRN 04/14/12 RX: Phenytoin Sodium Cap (ER Disp) [Dilantin Cap (ER Disp)] 200 mg PO 1230 04/14/12 RX: Phenytoin Sodium Cap (ER Disp) [Dilantin Cap (ER Disp)] 300 mg PO 0030 04/14/12 RX: Promethazine Tab (ER Disp) [Phenergan Tab (ER Dispense)] 1 tab PO PRN PRN 04/14/12 RX: Amlodipine Besylate [Norvasc] 10 mg PO DAILY #0 tab 04/26/12 RX: Aspirin 325 mg PO DAILY #0 tab 04/26/12 RX: Atenolol 50 mg PO BID #0 tab 04/26/12 RX: Lisinopril [Prinivil] 10 mg PO DAILY #0 tab 04/26/12 RX: Clonidine HCl [Clonidine Hydrochloride] 0.4 mg PO TID 11/05/13 RX: cloNAZepam [Klonopin] 1 mg PO TID PRN 11/06/13 Clopidogrel Bisulfate [Plavix] 75 mg PO QD 12/07/15 RX: Metformin HCl [Metformin Hydrochloride] 500 mg PO DAILY 12/07/15 Rosuvastatin Calcium [Crestor] 20 mg PO DAILY 12/07/15 Cetirizine HCl [ZyrTEC] 10 mg PO DAILY 01/05/16 Montelukast [Singulair] 10 mg PO DAILY 01/05/16 Obimdcpjybjfw-Ssfe-Gabickvhxc [Fioricet] 1 ea PO Q8H PRN #21 tab 11/16/16 Cyclobenzaprine HCl [Flexeril] 5 mg PO TID PRN #30 tab 11/16/16 RX: Baclofen [Lioresal] 10 mg PO Q8HR PRN #30 tab 12/19/16 predniSONE [Prednisone] 20 mg PO DAILY #7 tab 12/19/16 RX: Tramadol HCl 50 mg PO Q4HR PRN #15 tab 10/15/18 Azithromycin [Zithromax Z-Compa] 250 mg PO DAILY #6 tab 05/22/19 RX: Albuterol Inhaler [Ventolin Hfa Inhaler] 2 puff INH Q6H PRN #1 inh 05/22/19 RX: Prednisone 60 mg PO DAILY 5 Days #15 tab 05/22/19 Review of Systems - Review of Systems Constitutional: States: malaise. Denies: chills, fever EENTM: States: nose congestion. Denies: ear pain, throat pain Respiratory: States: cough, short of breath, wheezing Cardiology: Denies: chest pain, palpitations, syncope Gastrointestinal/Abdominal: Denies: diarrhea, nausea, vomiting Genitourinary: States: no symptoms reported Musculoskeletal: States: other - body aches Skin: States: no symptoms reported Neurological: States: no symptoms reported All other Systems: Reviewed and Negative Past Medical History (General) - Patient Medical History Hx Seizures: Yes Hx Stroke: Yes - TIAs Hx Dementia: No Hx Asthma: Yes Hx of COPD: Yes Hx Cardiac Disorders: Yes Hx Congestive Heart Failure: No Hx Pacemaker: No Hx Hypertension: Yes Hx Thyroid Disease: No Hx Diabetes: Yes Hx Gastroesophageal Reflux: No Hx Renal Disease: Yes Hx Cancer: No Hx of HIV: No Hx Hepatitis C: Yes Hx MRSA: No - Vaccination History Hx Tetanus, Diphtheria Vaccination: No Hx Influenza Vaccination: No Hx Pneumococcal Vaccination: Yes - Social History Hx Tobacco Use: Yes Hx Chewing Tobacco Use: No Hx Alcohol Use: No Hx Substance Use: No Hx Substance Use Treatment: No Hx Depression: Yes Hx Physical Abuse: No Hx Emotional Abuse: No Hx Suspected Abuse: No - Female History Patient : No Family Medical History - Family History Mother Living Status: Still Living Hx Family Asthma: Yes Hx Family Congestive Heart Failure: No Hx Family Hypertension: Yes Hx Family Stroke: No Hx Family Diabetes: No Hx Family Cancer: No Physical Exam - Physical Exam General Appearance: Alert, Comfortable, No apparent distress Ears, Nose, Throat: normal pharynx Neck: non-tender, full range of motion, supple Respiratory: chest non-tender, other - good air movement with expiratory wheezes Cardiovascular/Chest: normal peripheral pulses, regular rate, rhythm, no edema, no murmur Gastrointestinal/Abdominal: non tender, soft, no pulsatile mass Back Exam: no CVA tenderness, no vertebral tenderness Extremity: normal range of motion, non-tender, no pedal edema, no calf tenderness Neurologic: no motor/sensory deficits, alert, normal mood/affect Skin Exam: normal color, warm/dry Progress - Progress Progress: 05/22/19 16:59 D/W Dr. Agee at 1648. Recommends treatment for bronchitis and COPD exacerbation and he will follow in clinic this week. - Results/Orders Results/Orders: EKG at 1542 NSR with 1st degree AV block, rate 63, no T wave abnormality EXAM DESCRIPTION: Chest,1 View CLINICAL HISTORY: short of breath FINDINGS/ IMPRESSION: Comparison 09/19/2018. Mild cardiomegaly. Tortuous aorta with similar contour No pulmonary edema, alveolar [place] or effusion No pneumothorax. No acute bony abnormality 05/22/19 15:09 IV:Start .ONCE HEMOGLOBIN A1C Stat 05/22/19 15:15 EKG .ONCE Laboratory Results - last 24 hr 05/22/19 05/22/19 05/22/19 15:20 15:20 15:20 WBC 7.8 RBC 5.58 H Hgb 14.1 Hct 43.5 MCV 77.8 L MCH 25.2 L MCHC 32.4 L RDW 17.7 H Plt Count 326 MPV 8.6 Absolute Neuts (auto) 4.60 Absolute Lymphs (auto) 2.10 Absolute Monos (auto) 0.70 Absolute Eos (auto) 0.30 Absolute Basos (auto) 0.10 Neutrophils % 58.8 Lymphocytes % 27.4 Monocytes % 8.9 Eosinophils % 3.6 Basophils % 1.3 Sodium 139 Potassium 3.5 L Chloride 103 Carbon Dioxide 24 Anion Gap 15.5 BUN 19 H Creatinine 1.61 H BUN/Creatinine Ratio 11.8 Random Glucose 98 Hemoglobin A1c 5.8 Serum Osmolality 279.8 Calcium 9.8 Total Bilirubin 0.4 AST 24 ALT 21 Alkaline Phosphatase 101 B-Natriuretic Peptide 433.0 H* Serum Total Protein 8.0 Albumin 4.1 Globulin 3.9 H Albumin/Globulin Ratio 1.1 Departure - Departure Clinical Impression: COPD with exacerbation, Bronchitis, Hypertension Time of Disposition: 17:00 Disposition: Discharge to Home or Self Care Condition: Good Departure Forms: ED Discharge - Pt. Copy, Patient Portal Self Enrollment Instructions: Acute Bronchitis, Adult (DC) Diet: resume usual diet Activity: increase activity as tolerated Referrals: Logan Bruce MD [Primary Care Provider] - 1-2 Days Prescriptions: RX: Albuterol Inhaler [Ventolin Hfa Inhaler] 2 puff INH Q6H PRN #1 inh PRN Reason: Wheezing Azithromycin [Zithromax Z-Compa] 250 mg PO DAILY #6 tab RX: Prednisone 60 mg PO DAILY 5 Days #15 tab Home Medications: Ambulatory Orders RX: Gabapentin [Neurontin] 1,200 mg PO TID 04/14/12 RX: Isosorbide Mononitrate [Imdur] 60 mg PO DAILY 04/14/12 RX: Nitroglycerin 0.4 mg Tab [Nitrostat] 0.4 mg SL PRN PRN 04/14/12 RX: Phenytoin Sodium Cap (ER Disp) [Dilantin Cap (ER Disp)] 200 mg PO 1230 04/14/12 RX: Phenytoin Sodium Cap (ER Disp) [Dilantin Cap (ER Disp)] 300 mg PO 0030 04/14/12 RX: Promethazine Tab (ER Disp) [Phenergan Tab (ER Dispense)] 1 tab PO PRN PRN 04/14/12 RX: Amlodipine Besylate [Norvasc] 10 mg PO DAILY #0 tab 04/26/12 RX: Aspirin 325 mg PO DAILY #0 tab 04/26/12 RX: Atenolol 50 mg PO BID #0 tab 04/26/12 RX: Lisinopril [Prinivil] 10 mg PO DAILY #0 tab 04/26/12 RX: Clonidine HCl [Clonidine Hydrochloride] 0.4 mg PO TID 11/05/13 RX: cloNAZepam [Klonopin] 1 mg PO TID PRN 11/06/13 Clopidogrel Bisulfate [Plavix] 75 mg PO QD 12/07/15 RX: Metformin HCl [Metformin Hydrochloride] 500 mg PO DAILY 12/07/15 Rosuvastatin Calcium [Crestor] 20 mg PO DAILY 12/07/15 Cetirizine HCl [ZyrTEC] 10 mg PO DAILY 01/05/16 Montelukast [Singulair] 10 mg PO DAILY 01/05/16 Ywkngfynfvidi-Qpjp-Jjmvncdsqc [Fioricet] 1 ea PO Q8H PRN #21 tab 11/16/16 Cyclobenzaprine HCl [Flexeril] 5 mg PO TID PRN #30 tab 11/16/16 RX: Baclofen [Lioresal] 10 mg PO Q8HR PRN #30 tab 12/19/16 predniSONE [Prednisone] 20 mg PO DAILY #7 tab 12/19/16 RX: Tramadol HCl 50 mg PO Q4HR PRN #15 tab 10/15/18 Azithromycin [Zithromax Z-Compa] 250 mg PO DAILY #6 tab 05/22/19 RX: Albuterol Inhaler [Ventolin Hfa Inhaler] 2 puff INH Q6H PRN #1 inh 05/22/19 RX: Prednisone 60 mg PO DAILY 5 Days #15 tab 05/22/19
--- NOTE | 2019-05-22 15:31 | RAD ---
EXAM DESCRIPTION: Chest,1 View CLINICAL HISTORY: short of breath FINDINGS/ IMPRESSION: Comparison 09/19/2018. Mild cardiomegaly. Tortuous aorta with similar contour No pulmonary edema, alveolar [place] or effusion No pneumothorax. No acute bony abnormality Electronically signed by: Richard James MD 05/22/2019 3:29 PM [facility]
[2019-05-22 15:32] VITALS: TEMP 97.9
[2019-05-22 16:59] VITALS: BP 186/73; O2SAT 95
== END 2019-05-22 17:12 | disposition home or self-care (01) ==
LOC: ER 15:02
DX: J44.1 Chronic obstructive pulmonary disease with (acute) exacerbation (principal); I12.9 Hypertensive chronic kidney disease with stage 1 through stage 4 chronic kidney disease, or unspecified chronic kidney disease; I44.0 Atrioventricular block, first degree; F32.9 Major depressive disorder, single episode, unspecified; I51.9 Heart disease, unspecified; E11.22 Type 2 diabetes mellitus with diabetic chronic kidney disease; N18.9 Chronic kidney disease, unspecified; R56.9 Unspecified convulsions; Z86.19 Personal history of other infectious and parasitic diseases; Z87.891 Personal history of nicotine dependence; Z86.73 Personal history of transient ischemic attack (TIA), and cerebral infarction without residual deficits; Z79.84 Long term (current) use of oral hypoglycemic drugs; Z79.82 Long term (current) use of aspirin; Z79.899 Other long term (current) drug therapy; Z91.040 Latex allergy status; Z88.0 Allergy status to penicillin; Z88.8 Allergy status to other drugs, medicaments and biological substances

== ENCOUNTER 2019-06-09 16:51 | Emergency (ER) | payer OTHER ==
--- NOTE | 2019-06-09 17:11 | ED.PDOC ---
History of Present Illness - General Chief Complaint: Problem Stated Complaint: Bilateral flank pain, hesitency Time Seen by Provider: 06/09/19 17:03 Information Source: patient, RN notes reviewed, Vital Signs reviewed, EMS notes reviewed, EMS Additional Information: this is a patient with history of copd, hypertension previous history of kidney stones in the past patient does not appear in that much distress patient denies dysuria, denies hematuria tracee has patient told ems that her pain was in the left and and told me that the pain was on her right patient did not have any pain medicatios patient did not take her blood pressure - History of Present Illness Abdominal Pain Onset Location: flank Pain Radiation: flank Quality: moderate Timing/Duration: other - days Improving Factors: nothing Associated Symptoms: denies symptoms Review of Systems - Review of Systems Constitutional: States: no symptoms reported. Denies: diaphoresis, fever, malaise, weakness EENTM: States: no symptoms reported. Denies: eye pain, blurred vision, tearing, double vision, ear pain, ear discharge, nose pain, nose congestion, throat pain, throat swelling, mouth pain, mouth swelling Respiratory: States: no symptoms reported. Denies: cough, orthopnea, short of breath, stridor, wheezing Cardiology: States: no symptoms reported. Denies: chest pain, edema, palpitations, syncope Gastrointestinal/Abdominal: States: abdominal pain. Denies: see HPI, constipation, diarrhea, nausea, vomiting Genitourinary: States: no symptoms reported Musculoskeletal: States: no symptoms reported. Denies: back pain, gout, joint pain, joint swelling, muscle pain, muscle stiffness, neck pain Skin: States: no symptoms reported Neurological: States: no symptoms reported. Denies: anxiety, depressed, emotional problems, headache, numbness, paresthesia, pre-existing deficit, seizure, tingling, tremors, weakness Endocrine: States: no symptoms reported. Denies: excessive sweating, flushing, intolerance to cold, intolerance to heat, increased hunger, increased thirst, increased urine, unexplained weight gain, unexplained weight loss Hematologic/Lymphatic: States: no symptoms reported. Denies: anemia, blood clots, easy bleeding, easy bruising, swollen glands Past Medical History (General) - Patient Medical History Hx Seizures: Yes Hx Stroke: Yes - TIAs Hx Dementia: No Hx Asthma: Yes Hx of COPD: Yes Hx Cardiac Disorders: Yes Hx Congestive Heart Failure: No Hx Pacemaker: No Hx Hypertension: Yes Hx Thyroid Disease: No Hx Diabetes: Yes Hx Gastroesophageal Reflux: No Hx Renal Disease: Yes Hx Cancer: No Hx of HIV: No Hx Hepatitis C: Yes Hx MRSA: No - Vaccination History Hx Tetanus, Diphtheria Vaccination: No Hx Influenza Vaccination: No Hx Pneumococcal Vaccination: Yes - Social History Hx Tobacco Use: Yes Hx Chewing Tobacco Use: No Hx Alcohol Use: No Hx Substance Use: No Hx Substance Use Treatment: No Hx Depression: Yes Hx Physical Abuse: No Hx Emotional Abuse: No Hx Suspected Abuse: No - Female History Patient : No Family Medical History - Family History Mother Living Status: Still Living Hx Family Asthma: Yes Hx Family Congestive Heart Failure: No Hx Family Hypertension: Yes Hx Family Stroke: No Hx Family Diabetes: No Hx Family Cancer: No Physical Exam - Physical Exam General Appearance: Alert, Well Developed Eyes, Ears, Nose, Throat Exam: PERRL/EOMI, normal ENT inspection, TMs normal Neck: non-tender, full range of motion Respiratory: chest non-tender, lungs clear, normal breath sounds, no respiratory distress, no accessory muscle use Cardiovascular/Chest: normal peripheral pulses, regular rate, rhythm, no edema, no gallop, no JVD Gastrointestinal/Abdominal: normal bowel sounds, non tender, soft, no organom egaly, no pulsatile mass Back Exam: normal inspection, other - mild cva tenderness Neurologic: job service consultant II-XII nml as tested, no motor/sensory deficits, alert, normal mood/affect, oriented x 3 Skin Exam: normal color Progress - Progress Progress: 06/09/19 18:22 this is a patinet that presents with conflicting stories, initially she told ems that she had left flank and the to me she told me that it ws right, then on physical exam she mentioned bilateral cva tenderness patient stated that she had and hx of kidney stones, patient denies dysuria of hematuria because patient bp was high because she did not take her bp meds today and she is on clonidine 0.4 mg and ordered a clonidine po I ordered a ct without contrast to rule out kidney stones patient does not appear toxic but I ordered tramadol for pain patient ct did not showed any evidence of kidney stones but it showed, left perinephirc stranding that could suggest pyelonephritis 06/09/19 18:27 06/09/19 18:28 waiting on urine result 06/09/19 19:00 patient urine did not show any evidence to suggest uti, but Since there is inflammatory changes seeing on ct I will discharge patient home on abx return to the ER if fever, chills, nausea, vomiting, abdominal pain, right lower quadrant pain, blood in urine, bloody stools, painful urination, unwanted weight loss, unable to hold any fluids down Departure - Departure Clinical Impression: Pyelonephritis Disposition: Discharge to Home or Self Care Condition: Fair Departure Forms: ED Discharge - Pt. Copy, Patient Portal Self Enrollment Instructions: Urinary Tract Infections in Adults, Kidney Infection Referrals: Logan Bruce MD [Primary Care Provider] - 1-2 Weeks Prescriptions: Cephalexin Monohydrate [Keflex] 500 mg PO BID #20 cap Home Medications: Ambulatory Orders Gabapentin [Neurontin] 1,200 mg PO TID 04/14/12 Isosorbide Mononitrate [Imdur] 60 mg PO DAILY 04/14/12 Nitroglycerin 0.4 mg Tab [Nitrostat] 0.4 mg SL PRN PRN 04/14/12 Phenytoin Sodium Cap (ER Disp) [Dilantin Cap (ER Disp)] 200 mg PO 1230 04/14/12 Phenytoin Sodium Cap (ER Disp) [Dilantin Cap (ER Disp)] 300 mg PO 0030 04/14/12 Promethazine Tab (ER Disp) [Phenergan Tab (ER Dispense)] 1 tab PO PRN PRN 04/14/12 Amlodipine Besylate [Norvasc] 10 mg PO DAILY #0 tab 04/26/12 Aspirin 325 mg PO DAILY #0 tab 04/26/12 Atenolol 50 mg PO BID #0 tab 04/26/12 Lisinopril [Prinivil] 10 mg PO DAILY #0 tab 04/26/12 Clonidine HCl [Clonidine Hydrochloride] 0.4 mg PO TID 11/05/13 cloNAZepam [Klonopin] 1 mg PO TID PRN 11/06/13 Clopidogrel Bisulfate [Plavix] 75 mg PO QD 12/07/15 Metformin HCl [Metformin Hydrochloride] 500 mg PO DAILY 12/07/15 Rosuvastatin Calcium [Crestor] 20 mg PO DAILY 12/07/15 Cetirizine HCl [ZyrTEC] 10 mg PO DAILY 01/05/16 Montelukast [Singulair] 10 mg PO DAILY 01/05/16 Ffqstqdekbokm-Kbyn-Aqhtchmnxy [Fioricet] 1 ea PO Q8H PRN #21 tab 11/16/16 Cyclobenzaprine HCl [Flexeril] 5 mg PO TID PRN #30 tab 11/16/16 Baclofen [Lioresal] 10 mg PO Q8HR PRN #30 tab 12/19/16 predniSONE [Prednisone] 20 mg PO DAILY #7 tab 12/19/16 Tramadol HCl 50 mg PO Q4HR PRN #15 tab 10/15/18 Albuterol Inhaler [Ventolin Hfa Inhaler] 2 puff INH Q6H PRN #1 inh 05/22/19 Azithromycin [Zithromax Z-Compa] 250 mg PO DAILY #6 tab 05/22/19 Prednisone 60 mg PO DAILY 5 Days #15 tab 05/22/19 Cephalexin Monohydrate [Keflex] 500 mg PO BID #20 cap 06/09/19 Additional Instructions: return to the ER if fever, chills, nausea, vomiting, abdominal pain, right lower quadrant pain, blood in urine, bloody stools, painful urination, unwanted weight loss, unable to hold any fluids down
[2019-06-09 17:13] VITALS: O2SAT 97
[2019-06-09] MEDS ORDERED: cloNIDine HCL 0.1 MG TAB PO ONE (17:58)
[2019-06-09] MEDS ORDERED: traMADol 37.5MG/APAP 325MG 1 EA TAB PO ONE (18:08)
--- NOTE | 2019-06-09 18:10 | CT ---
EXAM DESCRIPTION: Abdomen/Pelvis w/o Contrast CLINICAL HISTORY: 63 years Female right flank pain TECHNIQUE: CT of the abdomen and pelvis without contrast. All CT scans at this facility use dose modulation, iterative reconstruction, and/or weight based dosing when appropriate to reduce radiation dose to as low as reasonably achievable. COMPARISON: December 31, 2016. FINDINGS: Lower chest: Lung bases are clear. Coronary artery calcification again noted. Abdomen: Liver: No focal lesions. No intrahepatic ductal distention. Gallbladder: Negative Pancreas: Within normal limits Spleen: Within normal limits Right kidney: A 2 mm nonobstructing stone in the right kidney has increased, previously measuring 1 mm. Additional 1 mm new nonobstructing stone in the right kidney. Stable exophytic cyst. Left kidney: Unchanged nonobstructing stones in the left kidney. New left perinephric stranding. Stable exophytic cyst. Adrenal glands: Stable 2.9 cm left adrenal adenoma. Unchanged mild thickening of the right adrenal gland. Vascular structures: Unchanged aneurysmal dilatation of the distal descending thoracic aorta up to 5 cm. Unchanged dilatation of the aorta the level of the celiac axis measuring 5.5 cm, previously 5.3 cm. Unchanged aneurysmal dilatation of the aorta at the level of the kidneys measuring up to 5.5 cm. Unchanged aneurysmal dilatation of the aorta just above the aortic bifurcation measuring up to 4.5 cm. Unchanged aneurysmal dilatations of the bilateral common iliac arteries with stent on the right side. Pelvis: Bowel: Diverticulosis of the colon without inflammatory changes. Duodenal diverticulum again noted. Appendix: Contains hyperdense material without inflammatory changes. Peritoneum: No free fluid or free air. Lymph Nodes: No adenopathy. Reproductive: Status post hysterectomy. Urinary bladder: Unremarkable. Osseous structures: Unremarkable. Soft tissues: Unremarkable. IMPRESSION: 1. New left perinephric stranding. Correlate clinically for pyelonephritis. 2. Nonobstructing stones in both kidneys as above. 3. Aneurysmal dilatation of the thoracic and abdominal aorta and iliac arteries as described above. Recommend Vascular consult. Electronically signed by: Norm Amador MD 06/09/2019 6:08 PM [employer]
[2019-06-09] MEDS ORDERED: cefTRIAXone SODIUM 1 GM in SODIUM CHL 0.9% 50ML MIN-BAG+ 50 ML IVPB ONE (19:01)
[2019-06-09] MEDS ORDERED: cefTRIAXone SODIUM 1 GM VIAL IM ONE (19:05)
[2019-06-09 19:20] VITALS: BP 174/118
[2019-06-09] MEDS ORDERED: KETOROLAC TROMETHAMINE INJ 30 MG/ML VIAL IM ONE (19:20)
[2019-06-09 19:32] VITALS: TEMP 98.1
== END 2019-06-09 19:32 | disposition home or self-care (01) ==
LOC: ER 16:51
DX: N12 Tubulo-interstitial nephritis, not specified as acute or chronic (principal); F32.9 Major depressive disorder, single episode, unspecified; R56.9 Unspecified convulsions; J44.9 Chronic obstructive pulmonary disease, unspecified; I51.9 Heart disease, unspecified; I12.9 Hypertensive chronic kidney disease with stage 1 through stage 4 chronic kidney disease, or unspecified chronic kidney disease; N18.9 Chronic kidney disease, unspecified; E11.22 Type 2 diabetes mellitus with diabetic chronic kidney disease; Z87.442 Personal history of urinary calculi; Z86.19 Personal history of other infectious and parasitic diseases; Z87.891 Personal history of nicotine dependence; Z86.73 Personal history of transient ischemic attack (TIA), and cerebral infarction without residual deficits
CPT/HCPCS: 36415; 74176; 80053; 81001; 84484; 85025; J0696; J1885

== ENCOUNTER 2019-07-01 14:46 | Emergency (ER) | payer OTHER ==
[2019-07-01] MEDS ORDERED: niCARdipine HCL 2.5 MG/ML AMP IVPB ONE (15:04)
[2019-07-01] MEDS ORDERED: SODIUM CHLORIDE 0.9% 250ML 250 ML ONE (15:04)
--- NOTE | 2019-07-01 15:20 | ED.PDOC ---
History of Present Illness - General Chief Complaint: Unresponsive Stated Complaint: found unresponsive @ home Time Seen by Provider: 07/01/19 14:52 Source: EMS notes reviewed, other - Caregiver Exam Limitations: clinical condition - History of Present Illness Initial Comments: The patient is a 63-year-old female found down by her caregiver approximately 30 minutes prior to arrival here. The last known time that anyone had made contact with the patient was 6 PM yesterday. Last time she was seen to be normal was 10 AM yesterday. Patient has significant medical history for a known abdominal triple aortic aneurysm, COPD, hypertension, history of pyelonephritis. Upon arrival by EMS the patient was breathing at around 4 breaths/min and she was only moving the left upper extremity. She was not moving it with purpose. Underwent rapid sequence intubation there at this point. Oxygen saturations went from 68% up to the high 90s. The patient has been hypertensive and has remained so. She has remained in a normal sinus rhythm since being on her monitors. No evidence of any fever. The patient received labetalol, Versed, succinylcholine and then vecuronium prior to arrival here. Upon arrival here she was rushed to CT scan. She is subsequently been placed on the ventilator and appears to be ventilating easily. To this time she has not offered any resistance since arrival here. Pupils are pinpoint. Timing/Duration: unsure Severity: severe Allergies/Adverse Reactions: Allergies Latex Allergy (Verified 07/01/19 14:59) OBTAINED FROM MAGIC CHART Penicillins Allergy (Verified 07/01/19 14:59) OBTAINED FROM MAGIC CHART Pregabalin [From Lyrica] Allergy (Verified 07/01/19 14:59) OBTAINED FROM MAGIC CHART Home Medications: Ambulatory Orders Gabapentin [Neurontin] 1,200 mg PO TID 04/14/12 Isosorbide Mononitrate [Imdur] 60 mg PO DAILY 04/14/12 Nitroglycerin 0.4 mg Tab [Nitrostat] 0.4 mg SL PRN PRN 04/14/12 Phenytoin Sodium Cap (ER Disp) [Dilantin Cap (ER Disp)] 200 mg PO 1230 04/14/12 Phenytoin Sodium Cap (ER Disp) [Dilantin Cap (ER Disp)] 300 mg PO 0030 04/14/12 Promethazine Tab (ER Disp) [Phenergan Tab (ER Dispense)] 1 tab PO PRN PRN 04/14/12 Amlodipine Besylate [Norvasc] 10 mg PO DAILY #0 tab 04/26/12 Aspirin 325 mg PO DAILY #0 tab 04/26/12 Atenolol 50 mg PO BID #0 tab 04/26/12 Lisinopril [Prinivil] 10 mg PO DAILY #0 tab 04/26/12 Clonidine HCl [Clonidine Hydrochloride] 0.4 mg PO TID 11/05/13 cloNAZepam [Klonopin] 1 mg PO TID PRN 11/06/13 Clopidogrel Bisulfate [Plavix] 75 mg PO QD 12/07/15 Metformin HCl [Metformin Hydrochloride] 500 mg PO DAILY 12/07/15 Rosuvastatin Calcium [Crestor] 20 mg PO DAILY 12/07/15 Cetirizine HCl [ZyrTEC] 10 mg PO DAILY 01/05/16 Montelukast [Singulair] 10 mg PO DAILY 01/05/16 Qbxbxcffqaqds-Qxoh-Qifqvtelwc [Fioricet] 1 ea PO Q8H PRN #21 tab 11/16/16 Cyclobenzaprine HCl [Flexeril] 5 mg PO TID PRN #30 tab 11/16/16 Baclofen [Lioresal] 10 mg PO Q8HR PRN #30 tab 12/19/16 predniSONE [Prednisone] 20 mg PO DAILY #7 tab 12/19/16 Tramadol HCl 50 mg PO Q4HR PRN #15 tab 10/15/18 Albuterol Inhaler [Ventolin Hfa Inhaler] 2 puff INH Q6H PRN #1 inh 05/22/19 Azithromycin [Zithromax Z-Compa] 250 mg PO DAILY #6 tab 05/22/19 Prednisone 60 mg PO DAILY 5 Days #15 tab 05/22/19 Cephalexin Monohydrate [Keflex] 500 mg PO BID #20 cap 06/09/19 Review of Systems - Review of Systems Review of Systems: 07/01/19 15:20 the patient is unable to give a ros. Past Medical History (General) - Patient Medical History Hx Seizures: Yes Hx Stroke: Yes - TIAs Hx Dementia: No Hx Asthma: No Hx of COPD: Yes Hx Cardiac Disorders: Yes Hx Congestive Heart Failure: No Hx Pacemaker: No Hx Hypertension: Yes Hx Thyroid Disease: No Hx Diabetes: Yes Hx Gastroesophageal Reflux: No Hx Renal Disease: Yes Hx Cancer: No Hx of HIV: No Hx Hepatitis C: Yes Hx MRSA: No - Vaccination History Hx Tetanus, Diphtheria Vaccination: No Hx Influenza Vaccination: No Hx Pneumococcal Vaccination: No Immunizations Up to Date: No - UNKNOWN DUE TO PATIENT CONDITION - Social History Hx Tobacco Use: No Hx Chewing Tobacco Use: No - UNKNOWN DUE TO PT CONDITION Hx Alcohol Use: No Hx Substance Use: No Hx Substance Use Treatment: No Hx Depression: Yes Hx Physical Abuse: No Hx Emotional Abuse: No Hx Suspected Abuse: No - Female History Patient : No Family Medical History - Family History Mother Living Status: Still Living Hx Family Asthma: Yes Hx Family Congestive Heart Failure: No Hx Family Hypertension: Yes Hx Family Stroke: No Hx Family Diabetes: No Hx Family Cancer: No Physical Exam - Physical Exam General Appearance: Other - The patient is unresponsive and intubated. Eye Exam: bilateral other - Pupils are 1 mm and nonresponsive. Ears, Nose, Throat: normal pharynx - ET tube is in place. Neck: other - No visible or palpable evidence of any trauma. The patient is not responsive to pain at this point. Respiratory: no respiratory distress, no accessory muscle use, other - Respiratory drive is nonexistent at this time. There is a fine rales at bilateral bases. Cardiovascular/Chest: normal peripheral pulses, regular rate, rhythm, no edema Peripheral Pulses: radial,right: 2+, radial,left: 2+ Gastrointestinal/Abdominal: soft, other - Large pannus. Unable to palpate the known aortic aneurysm. Rectal Exam: deferred Extremity: normal range of motion - Passive, normal capillary refill, other - Extremities are flaccid at this point. She was given a paralytic. Neurologic: other - The patient is unresponsive. Skin Exam: normal color - Significant cyanosis and pallor were indicated by EMS at the site. She is doing much better by the time she arrives here. Comments: Vital Signs - 24 hr 07/01/19 14:56 Pulse Rate [ 105 H Left Radial] Respiratory 18 Rate Blood Pressure 219/140 [Left Arm] O2 Sat by Pulse 98 Oximetry Progress - Progress Progress: 07/01/19 15:46 The patient is a 63-year-old female presented emergency room after rapid sequence intubation for respiratory failure and altered mental status. From a respiratory standpoint the patient has improved significantly on the ventilator. Work-up appears to show a very significant left MCA stroke. The patient was also markedly hypertensive. A nicardipine drip has been started to help keep systolic blood pressures between 180 and 200. The patient is still mildly acidotic after approximately 20 minutes on the ventilator. This will need to be followed as well. pH was 7.23. The patient is being transferred for further stroke care. Due to her last known normal time, the patient is not a candidate for lytic therapy. Transferring for higher level of specialty care. Acceptance is appreciated. Critical care time spent is 40 minutes excluding other billable procedures. samira avis [phone] - Results/Orders Results/Orders: Single view chest x-ray shows an appropriate placed ET tube. Lungs are essentially clear. Mild cardiomegaly. CT of the head shows a developing left MCA stroke. EKG shows normal sinus rhythm at 85 bpm. Normal axis. Left atrial dilation. Poor R wave progression. Prolonged QT. Laboratory Tests 07/01/19 07/01/19 07/01/19 15:10 15:10 15:10 WBC 12.2 H RBC 5.87 H Hgb 14.6 Hct 45.2 MCV 77.0 L MCH 25.0 L MCHC 32.4 L RDW 17.9 H Plt Count 407 H MPV 8.2 Absolute Neuts (auto) 11.30 H Absolute Lymphs (auto) 0.50 L Absolute Monos (auto) 0.40 Absolute Eos (auto) 0.00 Absolute Basos (auto) 0.10 Neutrophils % 92.4 H Lymphocytes % 3.8 L Monocytes % 3.3 Eosinophils % 0.0 L Basophils % 0.5 PT 9.7 INR < 1.00 PTT (SP) 26.3 Sodium 140 Potassium 3.4 L Chloride 107 Carbon Dioxide 23 Anion Gap 13.4 BUN 26 H Creatinine 1.91 H BUN/Creatinine Ratio 13.6 Random Glucose 201 H Serum Osmolality 289.9 Lactic Acid Calcium 9.6 Magnesium Total Bilirubin 0.6 AST 27 ALT 20 Alkaline Phosphatase 104 Creatine Kinase 104 Serum Total Protein 7.9 Albumin 3.6 Globulin 4.3 H Albumin/Globulin Ratio 0.8 L 07/01/19 07/01/19 15:10 15:10 WBC RBC Hgb Hct MCV MCH MCHC RDW Plt Count MPV Absolute Neuts (auto) Absolute Lymphs (auto) Absolute Monos (auto) Absolute Eos (auto) Absolute Basos (auto) Neutrophils % Lymphocytes % Monocytes % Eosinophils % Basophils % PT INR PTT (SP) Sodium Potassium Chloride Carbon Dioxide Anion Gap BUN Creatinine BUN/Creatinine Ratio Random Glucose Serum Osmolality Lactic Acid 1.9 Calcium Magnesium 2.1 Total Bilirubin AST ALT Alkaline Phosphatase Creatine Kinase Serum Total Protein Albumin Globulin Albumin/Globulin Ratio Departure - Departure Clinical Impression: Ischemic stroke Respiratory failure Qualifiers: Chronicity: acute Respiratory failure complication: hypoxia Qualified Code(s): J96.01 - Acute respiratory failure with hypoxia Disposition: Transfer to Hospital Departure Forms: ED Discharge - Pt. Copy, Patient Portal Self Enrollment Referrals: Logan Bruce MD [Primary Care Provider] - 1-2 Weeks Home Medications: Ambulatory Orders Gabapentin [Neurontin] 1,200 mg PO TID 04/14/12 Isosorbide Mononitrate [Imdur] 60 mg PO DAILY 04/14/12 Nitroglycerin 0.4 mg Tab [Nitrostat] 0.4 mg SL PRN PRN 04/14/12 Phenytoin Sodium Cap (ER Disp) [Dilantin Cap (ER Disp)] 200 mg PO 1230 04/14/12 Phenytoin Sodium Cap (ER Disp) [Dilantin Cap (ER Disp)] 300 mg PO 0030 04/14/12 Promethazine Tab (ER Disp) [Phenergan Tab (ER Dispense)] 1 tab PO PRN PRN 04/14/12 Amlodipine Besylate [Norvasc] 10 mg PO DAILY #0 tab 04/26/12 Aspirin 325 mg PO DAILY #0 tab 04/26/12 Atenolol 50 mg PO BID #0 tab 04/26/12 Lisinopril [Prinivil] 10 mg PO DAILY #0 tab 04/26/12 Clonidine HCl [Clonidine Hydrochloride] 0.4 mg PO TID 11/05/13 cloNAZepam [Klonopin] 1 mg PO TID PRN 11/06/13 Clopidogrel Bisulfate [Plavix] 75 mg PO QD 12/07/15 Metformin HCl [Metformin Hydrochloride] 500 mg PO DAILY 12/07/15 Rosuvastatin Calcium [Crestor] 20 mg PO DAILY 12/07/15 Cetirizine HCl [ZyrTEC] 10 mg PO DAILY 01/05/16 Montelukast [Singulair] 10 mg PO DAILY 01/05/16 Vutarczrfljkq-Otzz-Mwbxbnefjp [Fioricet] 1 ea PO Q8H PRN #21 tab 11/16/16 Cyclobenzaprine HCl [Flexeril] 5 mg PO TID PRN #30 tab 11/16/16 Baclofen [Lioresal] 10 mg PO Q8HR PRN #30 tab 12/19/16 predniSONE [Prednisone] 20 mg PO DAILY #7 tab 12/19/16 Tramadol HCl 50 mg PO Q4HR PRN #15 tab 10/15/18 Albuterol Inhaler [Ventolin Hfa Inhaler] 2 puff INH Q6H PRN #1 inh 05/22/19 Azithromycin [Zithromax Z-Compa] 250 mg PO DAILY #6 tab 05/22/19 Prednisone 60 mg PO DAILY 5 Days #15 tab 05/22/19 Cephalexin Monohydrate [Keflex] 500 mg PO BID #20 cap 06/09/19 Transfer to Outside Facility - Transfer Information Decision to Transfer Date: 07/01/19 Decision to Transfer Time: 15:48 Reason for Transfer: ICU Accepting Provider:: dr myers Accepting Facility: [facility]
[2019-07-01] MEDS ORDERED: niCARdipine HCL 25 MG in SODIUM CHLORIDE 0.9% 250ML 240 ML IVPB SCH (15:30)
--- NOTE | 2019-07-01 15:30 | RAD ---
EXAM DESCRIPTION: Chest,1 View CLINICAL HISTORY: unresponsive COMPARISON: 22 May 2019 TECHNIQUE: AP portable chest FINDINGS: An endotracheal tube is seen in place at the level of the aortic arch. Cardiomegaly is noted. The lungs are clear. No pleural fluid is seen. IMPRESSION: 1. An endotracheal tube is seen at the level of the aortic arch. 2. Cardiomegaly is noted without evidence of congestive heart failure. Electronically signed by: David Burgos MD 07/01/2019 3:28 PM [employer]
--- NOTE | 2019-07-01 15:41 | CT ---
EXAM DESCRIPTION: Head CLINICAL HISTORY: 63 years, Female, UNRESPONSIVE COMPARISON: MRI November 28, 2013 TECHNIQUE: Head CT was performed without IV contrast. This exam was performed according to our departmental dose-optimization program, which includes automated exposure control, adjustment of the mA and/or kV according to patient size and/or use of iterative reconstruction technique. FINDINGS: No acute intracranial hemorrhage. An endotracheal tube is present but only partially visualized. No midline shift. The ventricles are not dilated. Chronic ischemic changes in the periventricular white matter, developing cortical infarct in the left frontoparietal region extending into the left insular cortex. No posterior fossa lesion. Mild mucoperiosteal thickening in the left sphenoid and right maxillary sinuses. Postoperative changes related to previous right-sided craniotomy. Vascular calcifications. No acute calvarial fracture. IMPRESSION: Developing left MCA territory cortical infarct. No intracranial hemorrhage. Chronic ischemic microvascular changes and vascular calcifications. Electronically signed by: Devin Wood MD 07/01/2019 3:39 PM [facility]
[2019-07-01 17:59] VITALS: BP 216/140; TEMP 97.7; O2SAT 100
== END 2019-07-01 15:35 | disposition short-term general hospital (02) ==
LOC: ER 14:46
DX: J96.01 Acute respiratory failure with hypoxia (principal); I63.512 Cerebral infarction due to unspecified occlusion or stenosis of left middle cerebral artery; J44.9 Chronic obstructive pulmonary disease, unspecified; I71.4 Abdominal aortic aneurysm, without rupture; R56.9 Unspecified convulsions; I51.9 Heart disease, unspecified; I13.0 Hypertensive heart and chronic kidney disease with heart failure and stage 1 through stage 4 chronic kidney disease, or unspecified chronic kidney disease; E11.22 Type 2 diabetes mellitus with diabetic chronic kidney disease; N18.9 Chronic kidney disease, unspecified; F32.9 Major depressive disorder, single episode, unspecified; Z86.73 Personal history of transient ischemic attack (TIA), and cerebral infarction without residual deficits; Z86.19 Personal history of other infectious and parasitic diseases; Z87.440 Personal history of urinary (tract) infections; Z79.84 Long term (current) use of oral hypoglycemic drugs; Z79.899 Other long term (current) drug therapy; Z79.82 Long term (current) use of aspirin
CPT/HCPCS: 36600; 70450; 71045; 80053; 82550; 82553; 82803; 82805; 83605; 83735; 83880; 84484; 85025; 85610; 85730; 93005; 94002; J7050